=== PATIENT | female | born 1930 | race Caucasian/White ===

== ENCOUNTER 2016-07-22 10:46 | Inpatient (IN) | payer MEDICARE, OTHER ==
[2016-07-22] MEDS ORDERED: FEVERALL 650 MG PR STA (10:54)
[2016-07-22] MEDS ORDERED: FEVERALL 650 MG ONE ×2 (10:58→11:22)
[2016-07-22] MEDS ORDERED: Sodium Chloride 0.9% 1000 ML 1,000 ML IV SCH (11:00)
[2016-07-22 11:30] LABS: COMPLETE URINE MICROSCOPIC? YES; Collection Type CLEAN CATCH; Ph 5.5 (5-6)
[2016-07-22 11:31] LABS: Mean Cell Volume 89.9 fl (78-100); Mean Platelet Volume 12.7 fl (6-9.5); Platelet Count 77 K/mm3 (150-450); Red Blood Count 5.47 M/mm3 (4.1-5.4); Red Cell Distribution Width 20.1 % (11.5-14.0); White Blood Count 8.2 K/mm3 (4.0-10.5)
[2016-07-22 11:31] LABS: Lactic Acid 4.6 (0.4-2.0)
[2016-07-22] MEDS ORDERED: Sodium Chloride 0.9% 1000 ML 1,000 ML IV STA ×2 (11:33→11:34)
[2016-07-22] MEDS ORDERED: Sodium Chloride 0.9% 500 ML 500 ML IV ONE ×2 (11:34→11:58)
[2016-07-22] MEDS ORDERED: Zosyn 3.375GM/100 Ml D5W 3.375 GM/100 ML IVPB IV STA (11:35)
[2016-07-22 11:42] LABS: Bacteria MODERATE /HPF (NEGATIVE); Epithelial Cells MODERATE /HPF (FEW); Mucus MANY /HPF (NEGATIVE)
[2016-07-22 11:47] LABS: Mean Corpuscular Hemoglobin 30.1 pg (26-32)
[2016-07-22] MEDS ORDERED: Zosyn 3.375GM/100 Ml D5W 3.375 GM/100 ML IVPB IV ONE (11:57)
[2016-07-22 12:01] LABS: ALBUMIN 2.1 g/dL (3.4-5.0); ANION GAP 16.6 MEQ/L (5-15); BILIRUBIN,TOTAL 1.9 mg/dL (0.2-1.0); Carbon Dioxide 19.6 mEq/L (21-32); Potassium 4.4 mEq/L (3.5-5.1); Total Protein 6.1 gm/dL (6.4-8.2)
--- NOTE | 2016-07-22 12:06 | XRAY ---
Indication: Abdominal pain, diarrhea, and fever. Comparison: None 2 views of the abdomen demonstrates nonspecific nonobstructed bowel gas pattern with cholecystectomy clips, left lower quadrant suture material, and IVC filter. No focal bowel dilatation or free air. Mild scattered vascular calcifications. Solid organs unremarkable. Osseous structures intact with mild osteopenia. Single portable chest demonstrates prominent interstitial lung markings and left base infiltrate/atelectasis. Heart is not enlarged for AP portable technique. Bony thorax intact with osteopenia and degenerative changes. Impression: 1. Nonacute nonobstructed abdomen. 2. Left base infiltrate/atelectasis. Correlate clinically.
--- NOTE | 2016-07-22 12:22 | ERPHSYRPT ---
- History of Present Illness Time Seen by Provider: 07/22/16 10:55 Source: patient, family (granddaughter), fpc records Patient Subjective Stated Complaint: PT BROUGHT IN FROM [place] VIA AMBULANCE FOR ALTERED MENTAL STATUS THIS MORNING, AND LOW B/P, B/P PER EMS WAS 124/74 AND BS WAS 109. PT CO NAUSEA Triage Nursing Assessment: PT IS ALERT, RESP LABORED AT TIMES, SKIN HOT TO TOUCH AND PINK, HAS BRUISING TO RIGHT LEG, PT INCONT OF SOFT STOOL . PT CLEANED AND NEW LINENS APPLIED, NO EDEMA NOTED Physician History: CC: fever Hx: 85 y/o patient sent from [facility]. She apparently was living at home recently , had some falls, was admitted to [facility]. Subsequently found to have strokes. Stopped warfarin. Now placed on eliquis per cardiology. She is in rehab at [facility]. Today the [place] nurse called EMS for low BP. The BP was okay upon EMS arrival. The fpc called with a report of flaccid left side of unknown duration. Upon EMS arrival she had negative Cinncinatti stroke score and moved all extremities. EMS however noted her to have some foul smelling diarrhea, fever. Upon arrival in ER fever 103. Pt does not complain of pain. Recent loose rattling cough per granddaughter. She signed prior SCO/DNR paperwork and this was confirmed with grand-daughter. Allergies/Adverse Reactions: No Known Drug Allergies Allergy (Unverified 07/22/16 11:37) Home Medications: Apixaban [Eliquis] 5 mg BID 07/22/16 [History] Aspirin 81 gm Chew [Baby Aspirin 81 mg Chew] 81 mg DAILY 07/22/16 [History ] Atenolol 25 mg DAILY 07/22/16 [History] Esomeprazole Magnesium [Nexium] 20 mg DAILY 07/22/16 [History] Eszopiclone 1 mg DAILY 07/22/16 [History] Furosemide [Lasix] 40 mg DAILY 07/22/16 [History] Levothyroxine Sodium 75 Mcg [Synthroid 75 Mcg] 75 mcg DAILY 07/22/16 [ History] Nystatin/TCN/Hc/Diphenhydram [Xenia's Magic Mouthwash] 5 ml TID 07/22/16 [ History] Polyethylene Glycol 3350 [Miralax Powder] 17 gm DAILY 07/22/16 [History] Hx Influenza Vaccination/Date Given: Yes Hx Pneumococcal Vaccination/Date Given: Yes Immunizations Up to Date: Yes - Review of Systems Constitutional: Fever, Malaise Eyes: No Symptoms Respiratory: Cough, No Dyspnea Cardiac: No Chest Pain Abdominal/Gastrointestinal: Diarrhea, No Abdominal Pain Genitourinary Symptoms: No Dysuria Musculoskeletal: No Back Pain Skin: No Rash Neurological: No Headache All Other Systems: Reviewed and Negative - Past Medical History Pertinent Past Medical History: Yes Neurological History: Stroke Cardiac History: Hypertension Musculoskeletal History: Osteoarthritis GI Medical History: GERD - Past Surgical History Past Surgical History: Yes Gastrointestinal: Hernia Repair - Social History Smoking Status: Never smoker Exposure to second hand smoke: No Drug Use: none Patient Lives Alone: No - Female History Hx Last Menstrual Period: POST - Nursing Vital Signs Nursing Vital Signs: Initial Vital Signs Temperature 103.7 F Temperature Source Rectal Pulse Rate 96 Respiratory Rate 16 Blood Pressure [Left Arm] 90/49 Pain Intensity 0 - Physical Exam General Appearance: alert, other (frail appearing elderly lady) Eye Exam: PERRL/EOMI Ears, Nose, Throat Exam: dry mucous membranes Neck Exam: normal inspection, supple Respiratory Exam: diminished breath sounds Cardiovascular Exam: regular rate/rhythm Gastrointestinal/Abdomen Exam: soft, No tenderness, No distention Back Exam: normal inspection Extremity Exam: pedal edema (trace) Skin Exam: dry, other (hot skin) SpO2 Interpretation: normal SpO2: 94 Oxygen Delivery: Nasal Cannula - Course Nursing assessment & vital signs reviewed: Yes EKG Interpreted by Me: RATE (110 regular rhythm with IVCD) - Radiology Exams AAS X-ray Interpretation: Teleradiologist Report (right base infiltrate, neg abd) Ordered Tests: Active Orders 24 hr Category Date Time Status Actuary Clerk STAT Care 07/22/16 10:55 Active Cath for Specimen-Straight STAT Care 07/22/16 10:55 Active EKG-ER Only STAT Care 07/22/16 10:55 Active IV Insertion STAT Care 07/22/16 10:55 Active IV Insertion-2nd Peripheral STAT Care 07/22/16 11:37 Active Oxygen-ED Only NASAL CANNULA 1 lpm Care 07/22/16 11:40 Active Pulse Oximetry (ED) STAT Care 07/22/16 10:55 Active Rectal Temperature STAT Care 07/22/16 10:55 Active OBSTR/ACUTE ABDOMEN SERIES Stat Exams 07/22/16 10:56 Completed BLOOD CULTURE Stat Lab 07/22/16 11:15 Received CBC W DIFF Stat Lab 07/22/16 11:10 Results CMP Stat Lab 07/22/16 11:10 Completed CULTURE,URINE Stat Lab 07/22/16 11:05 Received Lactic Acid Urgent Lab 07/22/16 10:55 Results Manual Differential NC Stat Lab 07/22/16 11:10 Results TROPONIN Stat Lab 07/22/16 11:10 Completed UA W/ MICROSCOPIC Stat Lab 07/22/16 11:05 Completed Medication Summary Generic Name Dose Route Start Last Admin Trade Name Freq PRN Reason Stop Dose Admin Sodium Chloride 1,000 mls @ 100 mls/hr 07/22/16 11:00 07/22/16 11:24 Sodium Chloride 0.9% 1000 Ml IV 08/21/16 10:59 100 mls/hr .Q10H RAMONE Administration Discontinued Medications Generic Name Dose Route Start Last Admin Trade Name Freq PRN Reason Stop Dose Admin Acetaminophen 975 mg 07/22/16 10:54 07/22/16 11:24 Feverall 650 Mg AZ 07/22/16 10:55 975 mg STAT STA Administration Acetaminophen Confirm 07/22/16 10:58 Feverall 650 Mg Administered 07/22/16 10:59 Dose 1,300 mg .ROUTE .STK-MED ONE Acetaminophen Confirm 07/22/16 11:22 Feverall 650 Mg Administered 07/22/16 11:23 Dose 1,300 mg .ROUTE .STK-MED ONE Sodium Chloride 1,000 mls @ 999 mls/hr 07/22/16 11:33 07/22/16 11:30 Sodium Chloride 0.9% 1000 Ml IV 07/22/16 12:33 999 mls/hr .Q1H1M STA Administration Sodium Chloride 1,000 mls @ 999 mls/hr 07/22/16 11:34 Sodium Chloride 0.9% 1000 Ml IV 07/22/16 12:34 .Q1H1M STA Sodium Chloride 500 mls @ 500 mls/hr 07/22/16 11:34 Sodium Chloride 0.9% 500 Ml IV 07/22/16 12:33 .Q1H ONE Piperacillin Sod/Tazobactam Sod 3.375 gm in 100 mls @ 200 mls/hr 07/22/16 11: 35 07/22/16 12:03 Zosyn 3.375gm/100 Ml D5w IV 07/22/16 12:04 200 mls/hr STAT STA Administration Piperacillin Sod/Tazobactam Sod Confirm 07/22/16 11:57 Zosyn 3.375gm/100 Ml D5w Administered 07/22/16 11:58 Dose 3.375 gm in 100 mls @ ud IV .STK-MED ONE Sodium Chloride Confirm 07/22/16 11:58 Sodium Chloride 0.9% 500 Ml Administered 07/22/16 11:59 Dose 500 mls @ ud IV .STK-MED ONE Non-Formulary Medication 1 each 07/22/16 13:02 Pharmacy Dosing Request IJ 07/22/16 13:03 STAT ONE Lab/Rad Data: Laboratory Result Diagrams 07/22/16 11:10 07/22/16 11:10 Laboratory Results 07/22/16 07/22/16 07/22/16 Range/Units 11:30 11:15 11:10 WBC (4.0-10.5) K/mm3 RBC (4.1-5.4) M/mm3 Hgb (12.0-16.0) gm/dl Hct (35-47) % MCV (78-100) fl MCH (26-32) pg MCHC (32-36) g/dl RDW (11.5-14.0) % Plt Count (150-450) K/mm3 MPV (6-9.5) fl Segmented Neutrophils Lymphocytes (Manual) Monocytes (Manual) Differential Comment Platelet Estimate Polychromasia Poikilocytosis Anisocytosis Sodium (136-145) mEq/L Potassium (3.5-5.1) mEq/L Chloride (98-107) mEq/L Carbon Dioxide (21-32) mEq/L Anion Gap (5-15) MEQ/L BUN (9-20) mg/dL Creatinine (0.55-1.30) mg/dl Estimated GFR ML/MIN Glucose (70-110) MG/DL Lactic Acid (0.4-2.0) Calcium (8.5-10.1) mg/dL Total Bilirubin (0.2-1.0) mg/dL AST (15-37) U/L ALT (12-78) U/L Alkaline Phosphatase (46-116) U/L Troponin I 0.124 H* (0.000-0.056) ng/ml Serum Total Protein (6.4-8.2) gm/dL Albumin (3.4-5.0) g/dL Ur Collection Type Urine Color (YELLOW) Urine Appearance (CLEAR) Urine pH (5-6) Ur Specific Finley (1.005-1.025) Urine Protein (Negative) Urine Glucose (UA) (NEGATIVE) mg/dL Urine Ketones (NEGATIVE) Urine Nitrite (NEGATIVE) Urine Bilirubin (NEGATIVE) Urine Urobilinogen (0-1) mg/dL Urine WBC (Auto) (NEGATIVE) Urine RBC (Auto) (0-5) Bert/ul Urine Microscopic RBC (0-2) /HPF Urine Microscopic WBC (0-5) /HPF Ur Epithelial Cells (FEW) /HPF Urine Bacteria (NEGATIVE) /HPF Hyaline Casts (0-2) /LPF Urine Mucus (NEGATIVE) /HPF Stl C. diff Tox B Gene NEGATIVE (NEGATIVE) C.difficile 027-NAP1-B1 PRESUMPTIVE NEGATIVE (NEGATIVE) Influenza Type A Ag NEGATIVE (NEGATIVE) Influenza Type B Ag NEGATIVE (NEGATIVE) RSV (PCR) NEGATIVE (Negative) Specimen Received 07/22/16 07/22/16 07/22/16 Range/Units 11:10 11:10 11:05 WBC 8.2 (4.0-10.5) K/mm3 RBC 5.47 H (4.1-5.4) M/mm3 Hgb 16.5 H (12.0-16.0) gm/dl Hct 49.2 H (35-47) % MCV 89.9 (78-100) fl MCH 30.1 (26-32) pg MCHC 33.5 (32-36) g/dl RDW 20.1 H (11.5-14.0) % Plt Count 77 L (150-450) K/mm3 MPV 12.7 H (6-9.5) fl Segmented Neutrophils Pending Lymphocytes (Manual) Pending Monocytes (Manual) Pending Differential Comment Pending Platelet Estimate Pending Polychromasia Pending Poikilocytosis Pending Anisocytosis Pending Sodium 133 L (136-145) mEq/L Potassium 4.4 (3.5-5.1) mEq/L Chloride 101 (98-107) mEq/L Carbon Dioxide 19.6 L (21-32) mEq/L Anion Gap 16.6 H (5-15) MEQ/L BUN 23 H (9-20) mg/dL Creatinine 1.67 H (0.55-1.30) mg/dl Estimated GFR 31 ML/MIN Glucose 125 H (70-110) MG/DL Lactic Acid (0.4-2.0) Calcium 7.8 L (8.5-10.1) mg/dL Total Bilirubin 1.9 H (0.2-1.0) mg/dL AST 135 H (15-37) U/L ALT 33 (12-78) U/L Alkaline Phosphatase 162 H (46-116) U/L Troponin I (0.000-0.056) ng/ml Serum Total Protein 6.1 L (6.4-8.2) gm/dL Albumin 2.1 L (3.4-5.0) g/dL Ur Collection Type CLEAN CATCH Urine Color YELLOW (YELLOW) Urine Appearance CLEAR (CLEAR) Urine pH 5.5 (5-6) Ur Specific Finley >=1.030 (1.005-1.025) Urine Protein 30 (Negative) Urine Glucose (UA) NEGATIVE (NEGATIVE) mg/dL Urine Ketones NEGATIVE (NEGATIVE) Urine Nitrite NEGATIVE (NEGATIVE) Urine Bilirubin SMALL (NEGATIVE) Urine Urobilinogen 1 (0-1) mg/dL Urine WBC (Auto) NEGATIVE (NEGATIVE) Urine RBC (Auto) TRACE-INTACT (0-5) Bert/ul Urine Microscopic RBC 2-5 (0-2) /HPF Urine Microscopic WBC 2-5 (0-5) /HPF Ur Epithelial Cells MODERATE (FEW) /HPF Urine Bacteria MODERATE (NEGATIVE) /HPF Hyaline Casts 2-5 (0-2) /LPF Urine Mucus MANY (NEGATIVE) /HPF Stl C. diff Tox B Gene (NEGATIVE) C.difficile 027-NAP1-B1 (NEGATIVE) Influenza Type A Ag (NEGATIVE) Influenza Type B Ag (NEGATIVE) RSV (PCR) (Negative) Specimen Received [id number] 07/22/16 Range/Units 10:55 WBC (4.0-10.5) K/mm3 RBC (4.1-5.4) M/mm3 Hgb (12.0-16.0) gm/dl Hct (35-47) % MCV (78-100) fl MCH (26-32) pg MCHC (32-36) g/dl RDW (11.5-14.0) % Plt Count (150-450) K/mm3 MPV (6-9.5) fl Segmented Neutrophils Lymphocytes (Manual) Monocytes (Manual) Differential Comment Platelet Estimate Polychromasia Poikilocytosis Anisocytosis Sodium (136-145) mEq/L Potassium (3.5-5.1) mEq/L Chloride (98-107) mEq/L Carbon Dioxide (21-32) mEq/L Anion Gap (5-15) MEQ/L BUN (9-20) mg/dL Creatinine (0.55-1.30) mg/dl Estimated GFR ML/MIN Glucose (70-110) MG/DL Lactic Acid 4.6 H (0.4-2.0) Calcium (8.5-10.1) mg/dL Total Bilirubin (0.2-1.0) mg/dL AST (15-37) U/L ALT (12-78) U/L Alkaline Phosphatase (46-116) U/L Troponin I (0.000-0.056) ng/ml Serum Total Protein (6.4-8.2) gm/dL Albumin (3.4-5.0) g/dL Ur Collection Type Urine Color (YELLOW) Urine Appearance (CLEAR) Urine pH (5-6) Ur Specific Finley (1.005-1.025) Urine Protein (Negative) Urine Glucose (UA) (NEGATIVE) mg/dL Urine Ketones (NEGATIVE) Urine Nitrite (NEGATIVE) Urine Bilirubin (NEGATIVE) Urine Urobilinogen (0-1) mg/dL Urine WBC (Auto) (NEGATIVE) Urine RBC (Auto) (0-5) Bert/ul Urine Microscopic RBC (0-2) /HPF Urine Microscopic WBC (0-5) /HPF Ur Epithelial Cells (FEW) /HPF Urine Bacteria (NEGATIVE) /HPF Hyaline Casts (0-2) /LPF Urine Mucus (NEGATIVE) /HPF Stl C. diff Tox B Gene (NEGATIVE) C.difficile 027-NAP1-B1 (NEGATIVE) Influenza Type A Ag (NEGATIVE) Influenza Type B Ag (NEGATIVE) RSV (PCR) (Negative) Specimen Received - Progress Progress Note: 07/22/16 12:22 She has fever and lactic acid elevation. Cultures sent. Zosyn given. She is receiving NS bolus 30ml/kg over 2 hours. 07/22/16 13:05 Abd soft and NT. She has elevated lactic acid so IVF bolus given. Consulted Dr Johnson regarding EKG and troponin- she has old LBBB and he advised no further heart treatment at present and to support care for sepsis. Called Dr Walter Levi and will admit to [facility]/S with IVF, vanco, zosyn to cover health care acquired pneumonia/sepsis. SEPSIS REASSMENT NOTE: T 99.1 HR 96 RR 16 BP 104/42 Alert, sleepy. Skin warm and dry and pink. Radial pulses 3+. DP pulses 2+ bilateral. Chest diminished without resp distress. Cor reg, tachy. Abd soft and NT. Will see patient in: hospital (full admit) Counseled pt/family regarding: lab results, diagnosis, need for follow-up, rad results - Departure Time of Disposition: 13:10 Departure Disposition: In-patient Admission Clinical Impression: Sepsis, healthcare acquired pneumonia, Elevated troponin Condition: Serious Critical Care Time: Yes Critical Care Time(excluding separately billable procedures): 30-74 minutes Referrals: JACKSON LEVI [Primary Care Provider] -
[2016-07-22 12:37] LABS: Total Cells Counted 100
[2016-07-22 12:38] LABS: ANISOCYTOSIS 2+; Platelet Estimate DECREASED (NORMAL); Poikilocytosis 2+; Polychromasia 1+
[2016-07-22] MEDS ORDERED: PHARMACY DOSING REQUEST IJ ONE (13:02)
[2016-07-22] MEDS ORDERED: ASPIRIN 600 MG PR ONE (13:04)
[2016-07-22] MEDS ORDERED: ASPIRIN 600 MG ONE (13:14)
[2016-07-22] MEDS ORDERED: VANCOCIN 500 MG VIAL*** 500 MG in Sodium Chloride 100ML MINI-BAG PLUS 100 ML IV SCH (14:00)
[2016-07-22] MEDS ORDERED: PHARMACY DOSING REQUIRED: VANCOMYCIN IV ONE (14:32)
[2016-07-22] MEDS: Sodium Chloride 0.9% 1000 ML 1,000 ML IV SCH (15:17)
[2016-07-22] MEDS ORDERED: Zosyn 3.375GM/100 Ml D5W 3.375 GM/100 ML IVPB IV SCH (18:00)
--- NOTE | 2016-07-22 18:01 | PCM.HP ---
History of Present Illness - Chief Complaint Chief Complaint: SEPSIS, HEALTHCARE ACQUIRED PNEUMONIA Date: 07/22/16 History of Present Illness: is a 85 year old female. from the retirement with cough yesterday and sudden deterioratoin this am with low bp and fever EMS found she had normal neuro exam in [facility]CF by EMS and in ED by Dr. Marshall. Nursing notes she has been moving all extremities and very tired. She currently only briefly shakes her head to questions and withdraws from stimuli. - Review of Systems Constitutional: Other (unable to obtain due to current mental status) Medications & Allergies Home Medications: Home Medication List Acetaminophen 325 mg [Tylenol 325 mg] 650 mg PO Q4HPRN PRN 07/22/16 [ History Confirmed 07/22/16] Apixaban [Eliquis] 5 mg PO BID 07/22/16 [History Confirmed 07/22/16] Aspirin 81 gm Chew [Baby Aspirin 81 mg Chew] 81 mg PO UD 07/22/16 [ History Confirmed 07/22/16] Atenolol 25 mg DAILY 07/22/16 [History Confirmed 07/22/16] Bisacodyl 10 mg [Dulcolax 10 MG SUPP] 10 mg RC DAILY PRN PRN 07/22/16 [ History Confirmed 07/22/16] Esomeprazole Magnesium [Nexium] 20 mg PO DAILY 07/22/16 [History Confirmed 07/22] Eszopiclone 1 mg PO HS 07/22/16 [History Confirmed 07/22/16] Furosemide [Lasix] 40 mg DAILY 07/22/16 [History Confirmed 07/22/16] Hydrocodone/Acetaminophen [[place] 5-325 Tablet] 1 each PO Q4HPRN PRN 07/22/16 [ History Confirmed 07/22/16] Levothyroxine Sodium 75 Mcg [Synthroid 75 Mcg] 75 mcg PO DAILY 07/22/16 [ History Confirmed 07/22/16] Nystatin/TCN/Hc/Diphenhydram [Xenia's Magic Mouthwash] 5 ml PO QID 07/22/16 [History Confirmed 07/22/16] Polyethylene Glycol 3350 [Miralax Powder] 17 gm DAILY 07/22/16 [History Confirmed 07/22/16] Allergies/Adverse Reactions: Allergies Allergy/AdvReac Type Severity Reaction Status Date / Time No Known Drug Allergies Allergy Unverified 07/22/16 11:37 - Past Medical History Past Medical History: Yes Neurological History: Stroke ENT History: No Pertinent History Cardiac History: Hypertension Respiratory History: No Pertinent History Endocrine Medical History: Hypothyroidism Musculoskelatal History: Osteoarthritis GI Medical History: GERD History: No Pertinent History Pyscho-Social History: No Pertinent History Reproductive Disorders: No Pertinent History - Female History Hx Last Menstrual Period: POST Are you now?: No - Past Surgical History Past Surgical History: Yes Neuro Surgical History: No Pertinent History Cardiac History: No Pertinent History Respiratory Surgery: No Pertinent History GI Surgical History: Hernia Repair Genitourinary Surgical Hx: No Pertinent History Musculskeletal Surgical Hx: No Pertinent History Female Surgical History: No Pertinent History - Social History Smoking Status: Never smoker Exposure to second hand smoke: No Alcohol: None Drug Use: none - Physical Exam Vital Signs: Vital Signs - 24 hr Temp Pulse Resp BP Pulse Ox 07/22/16 16:16 84 18 96 07/22/16 15:31 98.1 F 89 18 97/54 93 L 07/22/16 14:33 98.1 F 89 18 97/54 93 L 07/22/16 14:32 98.1 F 89 20 97/54 96 07/22/16 14:20 90 20 90/51 07/22/16 13:54 99.1 F 89 20 93/42 96 07/22/16 13:20 93 H 16 84/47 96 07/22/16 13:10 94 L 07/22/16 12:54 96 H 16 90/49 95 07/22/16 11:59 106 H 24 98/48 94 L 07/22/16 11:30 103.7 F 96 07/22/16 10:50 103.7 F 07/22/16 10:46 103.7 F 116 H 30 H 121/67 98 Oxygen-Last 24 hours O2 Percentage 2 Liters = 28% O2 Percentage 2 Liters = 28% O2 Percentage 2 Liters = 28% O2 Percentage 2 Liters = 28% O2 Percentage 2 Liters = 28% O2 Percentage 2 Liters = 28% O2 Percentage 2 Liters = 28% General Appearance: no apparent distress, lethargy Neurologic Exam: other (withdraws from painful stimuli moves head from exam and closes eyes to light shakes head and mumbled response) Eye Exam: pale conjunctivae Ears, Nose, Throat Exam: dry mucous membranes Neck Exam: non-tender, supple Respiratory Exam: crackles/rales, rhonchi Cardiovascular Exam: regular rate/rhythm, murmur, edema Gastrointestinal/Abdomen Exam: soft, normal bowel sounds, No tenderness, No distention Extremity Exam: pedal edema, No calf tenderness Skin Exam: warm, dry, other (flushed appearence) Results - Other Procedures and Tests Respiratory Therapy 07/22/16 16:20 Oxygen NASAL CANNULA 2 lpm Assessment/Plan (1) Severe sepsis Current Visit: Yes Status: Acute Assessment & Plan: Her fluid resuscitation has seemed to show good improvement in BP, heart rate, oxygenation is doing well on 2L nc O2 currently. With her current drowsy mental status, hx of stroke, eliquis and thrombocytopenia will get CT noncontrast head rule out hemorrhage if negative continue the eliquis. Also check vbg repeat lytes and check ammonia level Sepsis due to health care associated pneumonia with associated renal failure and toxic encephalopathy with lactic acidosis improving with fluid resuscitation that appears adequately resuscitated currently and history of her cardiac deficits continue at 100 mL/h and monitor fluid status closely continue vanc + zosyn cultures pending. her plate printer recommended medical mgmt only for her elevated troponin and will continue with asa/atenolol if bp allows / will add statin no nicholas inhibitor with acute renal failure and sepsis Code(s): A41.9 - SEPSIS, UNSPECIFIED ORGANISM; R65.20 - SEVERE SEPSIS WITHOUT SEPTIC SHOCK (2) Pneumonia Current Visit: Yes Status: Acute Code(s): J18.9 - PNEUMONIA, UNSPECIFIED ORGANISM (3) Toxic metabolic encephalopathy Current Visit: Yes Status: Acute Code(s): G92 - TOXIC ENCEPHALOPATHY (4) Thrombocytopenia Current Visit: Yes Status: Acute (5) Acute renal failure Current Visit: Yes Status: Acute (6) Dehydration Current Visit: Yes Status: Acute Code(s): E86.0 - DEHYDRATION (7) Diarrhea Current Visit: Yes Status: Acute Code(s): R19.7 - DIARRHEA, UNSPECIFIED (8) Elevated troponin Current Visit: Yes Status: Acute Code(s): R74.8 - ABNORMAL LEVELS OF OTHER SERUM ENZYMES (9) Personal history of transient ischemic attack (TIA), and cerebral infarction without residual deficits Current Visit: Yes Status: Chronic Code(s): Z86.73 - PRSNL HX OF TIA (TIA), AND CEREB INFRC W/O RESID DEFICITS
[2016-07-22 18:21] LABS: A-aADO2 47; ARTERIAL BLD GAS O2 SATURATION 99.6 % (95-100); ARTERIAL BLOOD GAS BASE EXCESS -2.6 (-2.0-2.0); ARTERIAL BLOOD GAS FIO2 28 %; ARTERIAL BLOOD GAS PO2 116 mmHg (75-100); ARTERIAL BLOOD GAS pH 7.45 (7.35-7.45)
[2016-07-22] MEDS ORDERED: TYLENOL 325 MG PO PRN (18:27)
[2016-07-22] MEDS: Zosyn 2.25 GM 2.25 GM in Dextrose 5%/Water IV Soln. 100ML PLUS BAG 100 ML IV SCH (18:39)
[2016-07-22 19:15] LABS: ANION GAP 15.2 MEQ/L (5-15); Carbon Dioxide 18.9 mEq/L (21-32); Potassium 3.8 mEq/L (3.5-5.1)
[2016-07-22] MEDS: ELIQUIS PO SCH (22:37)
[2016-07-22] MEDS: ZOCOR 20MG PO SCH (22:37)
[2016-07-23] MEDS: Zosyn 2.25 GM 2.25 GM in Dextrose 5%/Water IV Soln. 100ML PLUS BAG 100 ML IV SCH ×4 (00:19→17:33)
[2016-07-23] MEDS: Sodium Chloride 0.9% 1000 ML 1,000 ML IV SCH (00:23)
[2016-07-23] MEDS ORDERED: solu-CORTEF 100MG IV ONE (01:57)
[2016-07-23] MEDS ORDERED: solu-CORTEF 250MG IV ONE (02:02)
[2016-07-23 05:46] LABS: Mean Cell Volume 91.7 fl (78-100); Mean Corpuscular Hemoglobin 30.8 pg (26-32); Mean Platelet Volume 11.5 fl (6-9.5); Platelet Count 62 K/mm3 (150-450); Red Blood Count 4.32 M/mm3 (4.1-5.4); Red Cell Distribution Width 19.2 % (11.5-14.0); White Blood Count 3.3 K/mm3 (4.0-10.5)
[2016-07-23 06:14] LABS: ANION GAP 12.2 MEQ/L (5-15); Carbon Dioxide 21.6 mEq/L (21-32); Potassium 3.6 mEq/L (3.5-5.1)
[2016-07-23] MEDS ORDERED: Dulcolax 10 MG SUPP RC PRN (06:57)
[2016-07-23] MEDS ORDERED: BABY ASPIRIN 81 MG CHEW PO SCH (07:00)
--- NOTE | 2016-07-23 08:31 | XRAY ---
Indication: Altered mental status. Multiple contiguous axial images obtained through the head without contrast. Comparison: None Age-appropriate global atrophy and minimal periventricular degenerative micro-ischemia. No acute intracranial hemorrhage, abnormal extra-axial fluid collection, or mass effect. Fourth ventricle is midline without hydrocephalus. Bony calvarium intact with mild hyperostosis frontalis interna. Visualized paranasal sinuses and mastoid air cells are pneumatized and clear. Impression: Normal aging brain. No acute intracranial abnormalities. CT DI 3.66
[2016-07-23 09:14] LABS: ANISOCYTOSIS 1+; Basophilic Stippling 1+; Poikilocytosis 1+; Polychromasia 1+; Total Cells Counted 100
[2016-07-23 09:15] LABS: Platelet Estimate DECREASED (NORMAL)
[2016-07-23] MEDS: Protonix 40MG Tablet PO SCH (10:00)
[2016-07-23] MEDS ORDERED: TENORMIN 50 MG PO SCH (10:00)
[2016-07-23] MEDS: VANCOCIN 1 GM VIAL*** 0.75 GM in Sodium Chloride 0.9% 250 ML 250 ML IV SCH (10:00)
[2016-07-23] MEDS: ELIQUIS PO SCH ×2 (10:00→23:15)
[2016-07-23] MEDS: SYNTHROID 75 MCG PO SCH (10:00)
[2016-07-23 10:07] LABS: Collection Type VOID
[2016-07-23] MEDS: solu-CORTEF 100MG IV SCH ×2 (11:48→17:34)
[2016-07-23 12:26] LABS: COMPLETE URINE MICROSCOPIC? YES
[2016-07-23] MEDS: Nystatin SUSPENSION 60 ML PO SCH ×3 (13:58→23:19)
--- NOTE | 2016-07-23 14:16 | PCM.NOTE ---
Date and Time: 07/23/16 1412 Subjective Assessment: She is more awake and alert today and wanting something to drink. She has no pain, nausea or vomiting. Her mouth still hurts as it has for several days it appears with sores in her mouth. Objective Exam General Appearance: obese Neurologic Exam: alert, oriented x 3, cooperative Skin Exam: warm, dry, pale Eye Exam: pale conjunctivae, No scleral icterus Ears, Nose, Throat Exam: moist mucous membranes, other (oral care better today still some healing scabs on the roof of the soft palate) Neck Exam: non-tender, supple Respiratory Exam: crackles/rales (left base) Cardiovascular Exam: regular rate/rhythm, murmur, edema (1+ suma LE) Gastrointestinal/Abdomen Exam: soft, normal bowel sounds, No tenderness, No distention Extremity Exam: pedal edema, No calf tenderness OBJECTIVE DATA Vital Signs: Vital Signs - 24 hr Temp Pulse Resp BP Pulse Ox 07/23/16 14:07 97.8 F 07/23/16 13:06 96.8 F 70 18 108/57 96 07/23/16 09:38 96.9 F 07/23/16 07:19 96 F 68 18 106/60 95 07/23/16 05:46 96.4 F 66 16 104/58 95 07/23/16 03:51 22 07/23/16 02:48 94.7 F 71 22 107/56 92 L 07/23/16 00:40 95.6 F 71 20 106/56 94 L 07/22/16 20:12 93 L 07/22/16 20:00 96.0 F 71 20 98/57 95 07/22/16 18:24 75 102/54 95 07/22/16 16:16 84 18 96 07/22/16 15:31 98.1 F 89 18 97/54 93 L 07/22/16 14:33 98.1 F 89 18 97/54 93 L 07/22/16 14:32 98.1 F 89 20 97/54 96 07/22/16 14:20 90 20 90/51 Oxygen-Last 24 hours O2 Percentage 2 Liters = 28% O2 Percentage 2 Liters = 28% O2 Percentage 2 Liters = 28% O2 Percentage 2 Liters = 28% O2 Percentage 2 Liters = 28% O2 Percentage 2 Liters = 28% O2 Percentage 2 Liters = 28% O2 Percentage 2 Liters = 28% Pain Assessment - Last Documented Pain Intensity 0 Pain Scale Used 0-10 Pain Scale Intake and Output: Intake & Output 07/21/16 07/22/16 07/23/16 07/24/16 11:59 11:59 11:59 11:59 Intake Total 1391 Output Total 600 Balance 791 Weight 82.645 kg Lab Results: Lab Results-Last 24 Hours 07/22/16 07/22/16 07/22/16 Range/Units 18:12 18:57 18:57 WBC (4.0-10.5) K/mm3 RBC (4.1-5.4) M/mm3 Hgb (12.0-16.0) gm/dl Hct (35-47) % MCV (78-100) fl MCH (26-32) pg MCHC (32-36) g/dl RDW (11.5-14.0) % Plt Count (150-450) K/mm3 MPV (6-9.5) fl Segmented Neutrophils (36.0-66.0) % Lymphocytes (Manual) (24-44) % Monocytes (Manual) (0.0-12.0) % Differential Comment Platelet Estimate (NORMAL) Polychromasia Poikilocytosis Basophilic Stippling Anisocytosis Puncture Site LEFT BRACHIAL pCO2 29 L (35-45) mmHg pO2 116 H (75-100) mmHg Base Excess -2.6 L (-2.0-2.0) O2 Saturation 97.0 (94-100) g/dF ABG pH 7.45 (7.35-7.45) ABG HCO3 20.2 L (22-28) ABG O2 Sat (Measured) 99.6 (95-100) % Jake Test NOT APPLICABLE A-a Gradient 47 a/A Ratio 0.71 Hemoglobin 13.5 Carboxyhemoglobin 1.6 (0.0-6.9) % THgb Methemoglobin 1.0 L (1.4-1.5) % Potassium 3.6 3.8 (3.5-5.1) Temperature 37.0 C POC O2 Flow Rate 28 % Sodium 138 (136-145) mEq/L Chloride 108 H (98-107) mEq/L Carbon Dioxide 18.9 L (21-32) mEq/L Anion Gap 15.2 H (5-15) MEQ/L BUN 24 H (9-20) mg/dL Creatinine 1.34 H (0.55-1.30) mg/dl Estimated GFR 40 ML/MIN Glucose 131 H (70-110) MG/DL Calcium 7.1 L (8.5-10.1) mg/dL Ammonia 54 H (11-32) MMOL/l Ur Collection Type Urine Color (YELLOW) Urine Appearance (CLEAR) Urine pH (5-6) Ur Specific [place] (1.005-1.025) Urine Protein (Negative) Urine Glucose (UA) (NEGATIVE) mg/dL Urine Ketones (NEGATIVE) Urine Nitrite (NEGATIVE) Urine Bilirubin (NEGATIVE) Urine Urobilinogen (0-1) mg/dL Urine WBC (Auto) (NEGATIVE) Urine RBC (Auto) (0-5) Bert/ul Specimen Received 07/23/16 07/23/16 07/23/16 Range/Units 05:10 05:10 09:40 WBC 3.3 L (4.0-10.5) K/mm3 RBC 4.32 (4.1-5.4) M/mm3 Hgb 13.3 (12.0-16.0) gm/dl Hct 39.6 (35-47) % MCV 91.7 (78-100) fl MCH 30.8 (26-32) pg MCHC 33.6 (32-36) g/dl RDW 19.2 H (11.5-14.0) % Plt Count 62 L (150-450) K/mm3 MPV 11.5 H (6-9.5) fl Segmented Neutrophils 77 H (36.0-66.0) % Lymphocytes (Manual) 18 L (24-44) % Monocytes (Manual) 5 (0.0-12.0) % Differential Comment ABNORMAL Platelet Estimate DECREASED (NORMAL) Polychromasia 1+ Poikilocytosis 1+ Basophilic Stippling 1+ Anisocytosis 1+ Puncture Site pCO2 (35-45) mmHg pO2 (75-100) mmHg Base Excess (-2.0-2.0) O2 Saturation (94-100) g/dF ABG pH (7.35-7.45) ABG HCO3 (22-28) ABG O2 Sat (Measured) (95-100) % Jake Test A-a Gradient a/A Ratio Hemoglobin Carboxyhemoglobin (0.0-6.9) % THgb Methemoglobin (1.4-1.5) % Potassium 3.6 (3.5-5.1) Temperature C POC O2 Flow Rate % Sodium 139 (136-145) mEq/L Chloride 109 H (98-107) mEq/L Carbon Dioxide 21.6 (21-32) mEq/L Anion Gap 12.2 (5-15) MEQ/L BUN 26 H (9-20) mg/dL Creatinine 1.25 (0.55-1.30) mg/dl Estimated GFR 43 ML/MIN Glucose 110 (70-110) MG/DL Calcium 6.9 L (8.5-10.1) mg/dL Ammonia (11-32) MMOL/l Ur Collection Type VOID Urine Color DARK YELLOW (YELLOW) Urine Appearance CLEAR (CLEAR) Urine pH 5.0 (5-6) Ur Specific [place] 1.025 (1.005-1.025) Urine Protein TRACE (Negative) Urine Glucose (UA) NEGATIVE (NEGATIVE) mg/dL Urine Ketones NEGATIVE (NEGATIVE) Urine Nitrite NEGATIVE (NEGATIVE) Urine Bilirubin NEGATIVE (NEGATIVE) Urine Urobilinogen 0.2 (0-1) mg/dL Urine WBC (Auto) NEGATIVE (NEGATIVE) Urine RBC (Auto) NEGATIVE (0-5) Bert/ul Specimen Received 07/23/2016 10:06 Radiology Exams: Radiology Procedures Category Date Time Status HEAD WITHOUT CONTRAST [CT] Stat Exams 07/22/16 18:00 Completed Multi-Disciplinary Progress Notes: Multi-Disciplinary Progress Notes 07/22/16 15:02 Pharmacy Note by MICROCOMPUTER SUPPORT SPECIALIST,PHARM Estimated CrCl was 22ml/min. SCr is 1.67. Pharmacy to adjust Zosyn dose from 3.375g Q6H to 2.25g Q6H. Will monitor SCr and CrCl and adjust dose if needed. - Jeff aBrclay PharmD Candidate Initialized on 07/22/16 15:02 - END OF NOTE 07/22/16 14:28 Pharmacy Note by MICROCOMPUTER SUPPORT SPECIALIST,PHARM Pharmacy to dose Vancomycin. Pt's SCr was 1.67. Give Vancomycin 500mg Q24H. Get trough level on 07/24 at 0930. Continue to monitor and dose accordingly. - Jeff Barclay PharmD Candidate Initialized on 07/22/16 14:28 - END OF NOTE Assessment/Plan (1) Severe sepsis Current Visit: Yes Status: Acute Assessment & Plan: secondary to left lower lobe HCAP on vanc and zosyn was having low temp overnight and required warming blankent and hydrocortisone was added will continue at 50 mg q6h minimal urine output but improved renal function will anchor hollins for accurate I/O thrombocytopenia stable elevated ammonia level alert now will recheck after infection improving add lactulose if decreased mentation on Eliquis for ppx add soft diet now continue ivf at 100 mL/h Code(s): A41.9 - SEPSIS, UNSPECIFIED ORGANISM; R65.20 - SEVERE SEPSIS WITHOUT SEPTIC SHOCK (2) Pneumonia Current Visit: Yes Status: Acute Code(s): J18.9 - PNEUMONIA, UNSPECIFIED ORGANISM (3) Toxic metabolic encephalopathy Current Visit: Yes Status: Acute Code(s): G92 - TOXIC ENCEPHALOPATHY (4) Thrombocytopenia Current Visit: Yes Status: Acute (5) Acute renal failure Current Visit: Yes Status: Acute (6) Dehydration Current Visit: Yes Status: Acute Code(s): E86.0 - DEHYDRATION (7) Diarrhea Current Visit: Yes Status: Acute Code(s): R19.7 - DIARRHEA, UNSPECIFIED (8) Elevated troponin Current Visit: Yes Status: Acute Code(s): R74.8 - ABNORMAL LEVELS OF OTHER SERUM ENZYMES (9) Personal history of transient ischemic attack (TIA), and cerebral infarction without residual deficits Current Visit: Yes Status: Chronic Code(s): Z86.73 - PRSNL HX OF TIA (TIA), AND CEREB INFRC W/O RESID DEFICITS
[2016-07-23] MEDS: ZOCOR 20MG PO SCH (23:15)
[2016-07-24] MEDS: solu-CORTEF 100MG IV SCH ×2 (00:55→05:54)
[2016-07-24] MEDS: Zosyn 2.25 GM 2.25 GM in Dextrose 5%/Water IV Soln. 100ML PLUS BAG 100 ML IV SCH ×4 (00:56→17:19)
[2016-07-24 06:29] LABS: ANION GAP 11.1 MEQ/L (5-15); Potassium 3.7 mEq/L (3.5-5.1)
[2016-07-24] MEDS: Sodium Chloride 0.9% 1000 ML 1,000 ML IV SCH (06:39)
[2016-07-24 06:55] LABS: Mean Cell Volume 92.6 fl (78-100); Mean Corpuscular Hemoglobin 30.8 pg (26-32); Mean Platelet Volume 12.5 fl (6-9.5); Platelet Count 67 K/mm3 (150-450); Red Blood Count 4.32 M/mm3 (4.1-5.4); Red Cell Distribution Width 19.1 % (11.5-14.0); White Blood Count 3.1 K/mm3 (4.0-10.5)
[2016-07-24] MEDS: Protonix 40MG Tablet PO SCH (09:26)
[2016-07-24] MEDS: ELIQUIS PO SCH ×2 (09:26→21:44)
[2016-07-24] MEDS: SYNTHROID 75 MCG PO SCH (09:26)
[2016-07-24] MEDS: Nystatin SUSPENSION 60 ML PO SCH ×4 (09:27→21:44)
[2016-07-24] MEDS ORDERED: TROUGH DRUG LEVELS IJ ONE (09:30)
[2016-07-24] MEDS: VANCOCIN 1 GM VIAL*** 0.75 GM in Sodium Chloride 0.9% 250 ML 250 ML IV SCH (09:57)
[2016-07-24] MEDS ORDERED: ECOTRIN 81 MG PO SCH (10:00)
--- NOTE | 2016-07-24 10:21 | PCM.NOTE ---
Date and Time: 07/24/16 [facility] Subjective Assessment: doing much better tolerating drinking but still not able to swallow solids. States having difficulty sleeping also intermittently having some pain in the legs more on the left. she has developed a pressure ulcer on the right heal. She complains she is unable to sleep but nursing reports sleeping well. Objective Exam General Appearance: no apparent distress, alert Neurologic Exam: alert, oriented x 3, cooperative Skin Exam: normal color, warm, dry, other (right heal pressure ulcer) Eye Exam: PERRL, EOMI, eyes nml inspection Ears, Nose, Throat Exam: moist mucous membranes, other (redness in the soft palate is improving significantly.) Neck Exam: normal inspection, non-tender, supple, full range of motion Respiratory Exam: normal breath sounds, crackles/rales (bibasilar worse on left) , No respiratory distress Cardiovascular Exam: regular rate/rhythm, normal heart sounds, edema (2+ bilateral) Gastrointestinal/Abdomen Exam: soft, No tenderness, No mass Extremity Exam: normal inspection, normal range of motion, other (right heal blister) Back Exam: normal inspection, normal range of motion, No CVA tenderness, No vertebral tenderness Pelvic Exam: deferred Rectal Exam: deferred OBJECTIVE DATA Vital Signs: Vital Signs - 24 hr Temp Pulse Resp BP Pulse Ox 07/24/16 07:29 18 07/24/16 07:21 98.0 F 71 18 144/65 95 07/24/16 04:00 98.9 F 75 18 133/61 97 07/24/16 00:00 97.4 F 75 14 126/66 96 07/23/16 20:00 98.3 F 78 15 126/71 95 07/23/16 19:42 81 20 97 07/23/16 16:26 97.6 F 07/23/16 15:55 18 96 07/23/16 14:07 97.8 F 07/23/16 13:06 96.8 F 70 18 108/57 96 Oxygen-Last 24 hours O2 Percentage 2 Liters = 28% O2 Percentage 2 Liters = 28% O2 Percentage 2 Liters = 28% O2 Percentage 2 Liters = 28% Pain Assessment - Last Documented Pain Intensity 0 Pain Scale Used 0-10 Pain Scale Intake and Output: Intake & Output 07/21/16 07/22/16 07/23/16 07/24/16 11:59 11:59 11:59 11:59 Intake Total 1391 2890 Output Total 600 550 Balance 791 2340 Weight 82.645 kg Lab Results: Lab Results-Last 24 Hours 07/23/16 07/24/16 07/24/16 Range/Units 09:40 06:05 06:05 WBC 3.1 L (4.0-10.5) K/mm3 RBC 4.32 (4.1-5.4) M/mm3 Hgb 13.3 (12.0-16.0) gm/dl Hct 40.0 (35-47) % MCV 92.6 (78-100) fl MCH 30.8 (26-32) pg MCHC 33.3 (32-36) g/dl RDW 19.1 H (11.5-14.0) % Plt Count 67 L (150-450) K/mm3 MPV 12.5 H (6-9.5) fl Sodium (136-145) mEq/L Potassium (3.5-5.1) mEq/L Chloride (98-107) mEq/L Carbon Dioxide (21-32) mEq/L Anion Gap (5-15) MEQ/L BUN (9-20) mg/dL Creatinine (0.55-1.30) mg/dl Estimated GFR ML/MIN Glucose (70-110) MG/DL Calcium (8.5-10.1) mg/dL Ammonia 36 H (11-32) MMOL/l Ur Collection Type VOID Urine Color DARK YELLOW (YELLOW) Urine Appearance CLEAR (CLEAR) Urine pH 5.0 (5-6) Ur Specific [place] 1.025 (1.005-1.025) Urine Protein TRACE (Negative) Urine Glucose (UA) NEGATIVE (NEGATIVE) mg/dL Urine Ketones NEGATIVE (NEGATIVE) Urine Nitrite NEGATIVE (NEGATIVE) Urine Bilirubin NEGATIVE (NEGATIVE) Urine Urobilinogen 0.2 (0-1) mg/dL Urine WBC (Auto) NEGATIVE (NEGATIVE) Urine RBC (Auto) NEGATIVE (0-5) Bert/ul Specimen Received 07/23/2016 10:06 07/24/16 Range/Units 06:05 WBC (4.0-10.5) K/mm3 RBC (4.1-5.4) M/mm3 Hgb (12.0-16.0) gm/dl Hct (35-47) % MCV (78-100) fl MCH (26-32) pg MCHC (32-36) g/dl RDW (11.5-14.0) % Plt Count (150-450) K/mm3 MPV (6-9.5) fl Sodium 137 (136-145) mEq/L Potassium 3.7 (3.5-5.1) mEq/L Chloride 108 H (98-107) mEq/L Carbon Dioxide 22.0 (21-32) mEq/L Anion Gap 11.1 (5-15) MEQ/L BUN 28 H (9-20) mg/dL Creatinine 1.15 (0.55-1.30) mg/dl Estimated GFR 48 ML/MIN Glucose 134 H (70-110) MG/DL Calcium 7.4 L (8.5-10.1) mg/dL Ammonia (11-32) MMOL/l Ur Collection Type Urine Color (YELLOW) Urine Appearance (CLEAR) Urine pH (5-6) Ur Specific [place] (1.005-1.025) Urine Protein (Negative) Urine Glucose (UA) (NEGATIVE) mg/dL Urine Ketones (NEGATIVE) Urine Nitrite (NEGATIVE) Urine Bilirubin (NEGATIVE) Urine Urobilinogen (0-1) mg/dL Urine WBC (Auto) (NEGATIVE) Urine RBC (Auto) (0-5) Bert/ul Specimen Received Radiology Exams: Radiology Procedures Category Date Time Status HEAD WITHOUT CONTRAST [CT] Stat Exams 07/22/16 18:00 Completed Assessment/Plan (1) Severe sepsis Current Visit: Yes Status: Acute Assessment & Plan: continue vanc/zosyn for now improving well d/c iv fluids d/c hydrocortisone speech therapy eval and treat the swallowing dysfunction ppx is on eliquis therapeutic dose Code(s): A41.9 - SEPSIS, UNSPECIFIED ORGANISM; R65.20 - SEVERE SEPSIS WITHOUT SEPTIC SHOCK (2) Pneumonia Current Visit: Yes Status: Acute Code(s): J18.9 - PNEUMONIA, UNSPECIFIED ORGANISM (3) Toxic metabolic encephalopathy Current Visit: Yes Status: Resolved Code(s): G92 - TOXIC ENCEPHALOPATHY (4) Thrombocytopenia Current Visit: Yes Status: Acute (5) Acute renal failure Current Visit: Yes Status: Acute (6) Dehydration Current Visit: Yes Status: Resolved Code(s): E86.0 - DEHYDRATION (7) Diarrhea Current Visit: Yes Status: Resolved Code(s): R19.7 - DIARRHEA, UNSPECIFIED (8) Elevated troponin Current Visit: Yes Status: Acute Code(s): R74.8 - ABNORMAL LEVELS OF OTHER SERUM ENZYMES (9) Personal history of transient ischemic attack (TIA), and cerebral infarction without residual deficits Current Visit: Yes Status: Chronic Code(s): Z86.73 - PRSNL HX OF TIA (TIA), AND CEREB INFRC W/O RESID DEFICITS
[2016-07-24] MEDS: ZOCOR 20MG PO SCH (21:44)
[2016-07-25] MEDS: Zosyn 2.25 GM 2.25 GM in Dextrose 5%/Water IV Soln. 100ML PLUS BAG 100 ML IV SCH ×2 (00:16→06:16)
[2016-07-25 06:22] LABS: Mean Cell Volume 93.7 fl (78-100); Mean Corpuscular Hemoglobin 30.7 pg (26-32); Mean Platelet Volume 10.4 fl (6-9.5); Platelet Count 64 K/mm3 (150-450); Red Blood Count 4.27 M/mm3 (4.1-5.4); Red Cell Distribution Width 19.5 % (11.5-14.0); White Blood Count 3.3 K/mm3 (4.0-10.5)
[2016-07-25 06:49] LABS: ANION GAP 10.4 MEQ/L (5-15); Carbon Dioxide 22.6 mEq/L (21-32); Potassium 3.8 mEq/L (3.5-5.1)
--- NOTE | 2016-07-25 08:30 | PCM.DCORD ---
- Discharge Discharge Date: 07/25/16 Disposition: DC TO [facility] Condition: Stable Prescriptions: New Levofloxacin [Levofloxacin 500 MG Tablet] 500 mg PO QAM #5 tablet Metoprolol Tartrate 25 mg [Lopressor 25MG Tab] 25 mg PO BID #60 tab Continue Aspirin 81 gm Chew [Baby Aspirin 81 mg Chew] 81 mg PO UD Polyethylene Glycol 3350 [Miralax Powder] 17 gm DAILY Furosemide [Lasix] 40 mg DAILY Esomeprazole Magnesium [Nexium] 20 mg PO DAILY Levothyroxine Sodium 75 Mcg [Synthroid 75 Mcg] 75 mcg PO DAILY Apixaban [Eliquis] 5 mg PO BID Nystatin/TCN/Hc/Diphenhydram [Xenia's Magic Mouthwash] 5 ml PO QID Hydrocodone/Acetaminophen [Cohoes 5-325 Tablet] 1 each PO Q4HPRN PRN PRN Reason: Pain Acetaminophen 325 mg [Tylenol 325 mg] 650 mg PO Q4HPRN PRN PRN Reason: Mild Pain Bisacodyl 10 mg [Dulcolax 10 MG SUPP] 10 mg RC DAILY PRN PRN PRN Reason: Constipation Changed Eszopiclone 1 mg PO HS PRN #30 PRN Reason: Insomnia Discontinued Atenolol 25 mg DAILY Follow up with: JACKSON LEVI [Primary Care Provider] -
[2016-07-25] MEDS: ELIQUIS PO SCH (08:51)
[2016-07-25] MEDS: Nystatin SUSPENSION 60 ML PO SCH (08:52)
[2016-07-25] MEDS: Protonix 40MG Tablet PO SCH (08:52)
[2016-07-25] MEDS: SYNTHROID 75 MCG PO SCH (08:53)
[2016-07-25] MEDS ORDERED: VANCOCIN 1 GM VIAL*** 1 GM in Sodium Chloride 0.9% 250 ML 250 ML IV SCH (10:00)
[2016-07-25 11:20] VITALS: BP 132/66; PULSE 88; O2SAT 98
--- NOTE | 2016-07-25 19:16 | PCM.DS ---
Discharge Summary Date of Admission: 07/22/16 14:19 Date of Discharge: 07/25/16 Admitting Physician: JACKSON LEVI Primary Care Provider: JACKSON LEVI Allergies Allergies No Known Drug Allergies Allergy (Unverified 07/22/16 11:37) Hospital Summary - Hospital Course Hospital Course: Mrs. Larose was at [facility] for weakness and was having some slight cough but woke the morning of admission very weak lethargic and with low bp. 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 She responded well to fluid resuscitation with improvement in blood pressure and pulse. Her temperature improved but then went too low and had to be given warming blanket. She was treated with vanc+zosyn as well as hydrocortisone. She did well on this and her labs and mentation were improving she had no further fever events. She was given 4 days of the antibiotics and discharged back to [facility] to complete a levaquin coarse. SHe did continue to have trouble swallowing that she has had since prior to arrival due to mouth sores that are improving and prevent her from using her teeth. She swallows liquids with no difficulty but refuses solids for fear of it "getting caught" in her mouth she notes. She is swallowing pills now. She has swelling in her legs and has a pressure ulceration of her right heal. Her mental impairment resolved by time of discharge but still has difficulty with her short term memory which appears to be chronic and may have some early dementia. - Vitals & Intake/Output Vital Signs: Vital Signs Temperature 97.7 F 07/25/16 11:19 Pulse Rate 88 07/25/16 11:19 Respiratory Rate 20 07/25/16 11:19 Blood Pressure 132/66 07/25/16 11:19 O2 Sat by Pulse Oximetry 98 07/25/16 11:19 Oxygen-Last Documented O2 Percentage 2 Liters = 28% Intake & Output: Intake & Output 07/23/16 07/24/16 07/25/16 07/26/16 11:59 11:59 11:59 11:59 Intake Total 1391 2890 700 Output Total 600 550 650 Balance 791 2340 50 Weight 82.645 kg 82.645 kg - Lab Result Diagrams: 07/25/16 05:15 07/25/16 05:15 Lab Results-Last 24 Hrs: Lab Results-Last 24 Hours 07/25/16 07/25/16 Range/Units 05:15 05:15 WBC 3.3 L (4.0-10.5) K/mm3 RBC 4.27 (4.1-5.4) M/mm3 Hgb 13.1 (12.0-16.0) gm/dl Hct 40.0 (35-47) % MCV 93.7 (78-100) fl MCH 30.7 (26-32) pg MCHC 32.8 (32-36) g/dl RDW 19.5 H (11.5-14.0) % Plt Count 64 L (150-450) K/mm3 MPV 10.4 H (6-9.5) fl Sodium 138 (136-145) mEq/L Potassium 3.8 (3.5-5.1) mEq/L Chloride 109 H (98-107) mEq/L Carbon Dioxide 22.6 (21-32) mEq/L Anion Gap 10.4 (5-15) MEQ/L BUN 25 H (9-20) mg/dL Creatinine 1.03 (0.55-1.30) mg/dl Estimated GFR 54 ML/MIN Glucose 95 (70-110) MG/DL Calcium 7.6 L (8.5-10.1) mg/dL Slides for Path Review YES Micro Results-Entire Visit: Microbiology 07/23/16 10:10 - Final Urine, Indwelling Catheter NO GROWTH - Procedures and Test Procedures and Tests throughout Hospitalization: Therapy Orders & Screens 07/22/16 15:12 OT Screen per Nursing Assess Comment: Protocol Order Physician Instructions: Greater than 3 points order OT Admission Screening Reason For Exam: Triggered on Admission Diagnosis: SEPSIS, HEALTHCARE ACQUIRED PNEUMONIA Open Wound/Cellutlitis/Pressure Ulcers: No Acute Fx/ORIF/Change in wt bearing status: No Severe MUSCULOSKELETAL pain: No ADL Dysfunction: Yes Acute CVA w/Hemiparesis/Hemiplegia: No Decreased Functional Mobility/Strength: Yes Sprain/Strain: No Acute Post-op Mobility Dysfunction: No Total Points: 4 PT Screen per Nursing Assess Comment: Protocol Order Physician Instructions: Greater than 3 points order PT Admission Screenin Reason For Exam: Triggered on Admission Diagnosis: SEPSIS, HEALTHCARE ACQUIRED PNEUMONIA Open Wound/Cellutlitis/Pressure Ulcers: No Acute Fx/ORIF/Change in wt bearing status: No Severe MUSCULOSKELETAL pain: No ADL Dysfunction: Yes Acute CVA w/Hemiparesis/Hemiplegia: No Decreased Functional Mobility/Strength: Yes Sprain/Strain: No Acute Post-op Mobility Dysfunction: No Total Points: 4 ST Screen per Nursing Assess Comment: Protocol Order Physician Instructions: Greater than [address] Admission Screening Reason For Exam: Triggered on Admission Diagnosis: SEPSIS, HEALTHCARE ACQUIRED PNEUMONIA CVA/Dyshpagia/Aphasia: No Cognitive Deficits: No Dehydration/Nutrition Deficit: No Reflux: No Oral-Motor Difficulties: Yes Pneumonia: No Custodial Resident: Yes Total Points: 8 07/22/16 16:20 Oxygen NASAL CANNULA 2 lpm Comment: Diagnosis: SEPSIS, HEALTHCARE ACQUIRED PNEUMONIA 07/24/16 08:51 Speech Therapy Eval & Treat [ Eval & Treat (MD Order)] .as ordered Comment: Physician Instructions: Reason For Exam: Evaluate: Yes Treat: Yes Reason for Eval: difficulty swallowing Diagnosis: SEPSIS, HEALTHCARE ACQUIRED PNEUMONIA Discharge Exam General Appearance: no apparent distress, alert Neurologic Exam: alert, oriented x 3, cooperative, normal mood/affect, nml cerebellar function, sensation nml, No motor deficits Skin Exam: normal color, warm, dry Eye Exam: PERRL, EOMI, eyes nml inspection Ears, Nose, Throat Exam: moist mucous membranes, other (small vessicle on the right soft pallet) Neck Exam: normal inspection, non-tender, supple, full range of motion Respiratory Exam: crackles/rales (bibasilar) Cardiovascular Exam: regular rate/rhythm, murmur, edema (2+ suma LE) Gastrointestinal/Abdomen Exam: soft, No tenderness, No mass Extremity Exam: normal inspection, normal range of motion, other (pressure ulceration right heal) Back Exam: normal inspection, normal range of motion, No CVA tenderness, No vertebral tenderness Pelvic Exam: deferred Rectal Exam: deferred Final Diagnosis/Problem List - Final Discharge Diagnosis/Problem (1) Severe sepsis Status: Resolved (2) Pneumonia Status: Acute (3) Toxic metabolic encephalopathy Status: Resolved (4) Thrombocytopenia Status: Acute (5) Acute renal failure Status: Resolved (6) Dehydration Status: Resolved (7) Diarrhea Status: Resolved (8) Elevated troponin Status: Acute (9) Personal history of transient ischemic attack (TIA), and cerebral infarction without residual deficits Status: Chronic - Discharge Disposition: Skilled Care @ [facility] Condition: Stable Prescriptions: Continue Aspirin 81 gm Chew [Baby Aspirin 81 mg Chew] 81 mg PO UD Polyethylene Glycol 3350 [Miralax Powder] 17 gm DAILY Furosemide [Lasix] 40 mg DAILY Esomeprazole Magnesium [Nexium] 20 mg PO DAILY Levothyroxine Sodium 75 Mcg [Synthroid 75 Mcg] 75 mcg PO DAILY Apixaban [Eliquis] 5 mg PO BID Nystatin/TCN/Hc/Diphenhydram [Xenia's Magic Mouthwash] 5 ml PO QID Hydrocodone/Acetaminophen [Moore 5-325 Tablet] 1 each PO Q4HPRN PRN PRN Reason: Pain Acetaminophen 325 mg [Tylenol 325 mg] 650 mg PO Q4HPRN PRN PRN Reason: Mild Pain Bisacodyl 10 mg [Dulcolax 10 MG SUPP] 10 mg RC DAILY PRN PRN PRN Reason: Constipation Levofloxacin [Levofloxacin 500 MG Tablet] 500 mg PO QAM #5 tablet Metoprolol Tartrate 25 mg [Lopressor 25MG Tab] 25 mg PO BID #60 tab Changed Eszopiclone 1 mg PO HS PRN #30 PRN Reason: Insomnia Discontinued Atenolol 25 mg DAILY Instructions: Pneumonia -- Adult Follow up with: JACKSON LEVI [Primary Care Provider] - Forms: Ambulance Transport Record, Discharge Instructions, Discharge Skin Assessment, Patient Portal Information, Transfer Record Inter-Agency, Transfer Record Custodial
== END 2016-07-25 11:25 | DRG 871 ==
LOC: ED 10:46 → MED SURG 14:19
PROVIDERS: ADMIT Family Medicine; ATTEND Family Medicine
DX: R65.20 Severe sepsis without septic shock (principal); J18.9 Pneumonia, unspecified organism; G92 Toxic encephalopathy; N17.9 Acute kidney failure, unspecified; D47.3 Essential (hemorrhagic) thrombocythemia; E86.0 Dehydration; R19.7 Diarrhea, unspecified; R79.89 Other specified abnormal findings of blood chemistry; Z86.73 Personal history of transient ischemic attack (TIA), and cerebral infarction without residual deficits; Z79.01 Long term (current) use of anticoagulants; Z79.899 Other long term (current) drug therapy; K59.00 Constipation, unspecified; I10 Essential (primary) hypertension; E03.9 Hypothyroidism, unspecified; M19.90 Unspecified osteoarthritis, unspecified site; K21.9 Gastro-esophageal reflux disease without esophagitis
CPT/HCPCS: 36000; 36415; 36600; 70450; 74022; 80048; 80053; 80202; 81000; 81002; 82140; 82375; 82803; 83605; 84484; 85025; 85027; 87040; 87086; 87493; 87631; 93005; 93041; 94760; 96360; 96361; 96365; 99285; J1720; J2543; J3370; P9612; A9270-GY

== ENCOUNTER 2016-08-06 13:00 | Inpatient (IN) | payer MEDICARE, OTHER ==
[2016-08-06] MEDS ORDERED: Zofran 4 MG/2 ML VIAL IV PRN (13:37)
[2016-08-06] MEDS ORDERED: TYLENOL 325 MG PO PRN (13:37)
[2016-08-06] MEDS: Lasix 40 MG/4 ML IV SCH (14:38)
[2016-08-06 14:52] LABS: Mean Cell Volume 89.8 fl (78-100); Mean Corpuscular Hemoglobin 30.9 pg (26-32); Mean Platelet Volume 11.9 fl (6-9.5); Platelet Count 80 K/mm3 (150-450); Red Blood Count 4.89 M/mm3 (4.1-5.4); Red Cell Distribution Width 20.9 % (11.5-14.0); White Blood Count 5.1 K/mm3 (4.0-10.5)
--- NOTE | 2016-08-06 15:10 | PCM.HP ---
History of Present Illness - Chief Complaint Chief Complaint: volume overload, vomiting Date: 08/06/16 History of Present Illness: is a 85 year old female. who has becoming more edematous and gaining weight in the ecf despite her lack of po intake of any significance and now reporting that she is vomitting up every time she takes any pills. She was also found to have worsening bruising and right sided face skin changes purple in nature today after turning to clean. SHe notes her abdomen hurts all over at times and she vomits. Also hurts between shoulder blades at times. SHe continues to not be able to swallow well and this seems to continue to cause her problems. She has not had any reported fevers. When she takes pain medicine it seems to make her have more confusion. - Review of Systems Constitutional: Fatigue, Lethargy, No Fever, No Chills Eyes: No Discharge, No Eye Pain, No Eye Redness Ears, Nose, & Throat: Mouth Pain, No Ear Pain, No Ear Discharge, No Hearing Changes, No Throat Swelling, No Painful Swallowing Respiratory: No Cough, No Short Of Breath Cardiac: Edema, No Chest Pain, No Palpitations, No Syncope, No Orthopnea Abdominal/Gastrointestinal: Abdominal Pain, Nausea, Vomiting, No Diarrhea, No Constipation Genitourinary Symptoms: No Dysuria, No Hematuria, No Incontinence, No Urinary Retention Musculoskeletal: Arthralgias, Back Pain, No Joint Redness Skin: Decubiti, No Cellulitis Neurological: No Dizziness, No Focal Weakness, No Seizure Psychological: No Alcohol Abuse, No Drug Abuse Hematologic/Lymphatic: Easy Bleeding, Easy Bruising Medications & Allergies Home Medications: Home Medication List Acetaminophen 325 mg [Tylenol 325 mg] 650 mg PO Q4HPRN PRN 07/22/16 [ History Confirmed 08/06/16] Apixaban [Eliquis] 5 mg PO BID 07/22/16 [History Confirmed 08/06/16] Bisacodyl 10 mg [Dulcolax 10 MG SUPP] 10 mg RC DAILY PRN PRN 07/22/16 [ History Confirmed 08/06/16] Esomeprazole Magnesium [Nexium] 20 mg PO DAILY 07/22/16 [History Confirmed 08/06] Furosemide [Lasix] 40 mg PO 0600,1200 07/22/16 [History Confirmed 08/06/16] Hydrocodone/Acetaminophen [[place] 5-325 Tablet] 1 each PO Q4HPRN PRN 07/22/16 [ History Confirmed 08/06/16] Levothyroxine Sodium 75 Mcg [Synthroid 75 Mcg] 75 mcg PO 0600 07/22/16 [ History Confirmed 08/06/16] Polyethylene Glycol 3350 [Miralax Powder] 17 gm PO DAILY 07/22/16 [History Confirmed 08/06/16] Metoprolol Tartrate 25 mg [Lopressor 25MG Tab] 25 mg PO BID #60 tab [Rx Confirmed 08/06/16] Aspirin 81 mg PO UD 08/06/16 [History Confirmed 08/06/16] Eszopiclone 1 mg PO HS PRN PRN 08/06/16 [History Confirmed 08/06/16] Ondansetron [Zofran Odt] 4 mg PO 0830,2030 08/06/16 [History Confirmed 08/06/16] Saliva Stimulant Agents Comb.3 [Biotene Moisturizing Mouth] 1 spray PO UD [History Confirmed 08/06/16] Allergies/Adverse Reactions: Allergies Allergy/AdvReac Type Severity Reaction Status Date / Time No Known Drug Allergies Allergy Verified 08/06/16 13:27 - Past Medical History Past Medical History: Yes Neurological History: Stroke ENT History: No Pertinent History Cardiac History: Hypertension Respiratory History: No Pertinent History Endocrine Medical History: Hypothyroidism Musculoskelatal History: Osteoarthritis GI Medical History: GERD History: No Pertinent History Pyscho-Social History: No Pertinent History Reproductive Disorders: No Pertinent History - Female History Are you now?: No - Past Surgical History Past Surgical History: Yes Neuro Surgical History: No Pertinent History Cardiac History: No Pertinent History Respiratory Surgery: No Pertinent History GI Surgical History: Hernia Repair Genitourinary Surgical Hx: No Pertinent History Musculskeletal Surgical Hx: No Pertinent History Female Surgical History: No Pertinent History - Social History Smoking Status: Never smoker Exposure to second hand smoke: No Alcohol: None Drug Use: none - Physical Exam Vital Signs: Vital Signs - 24 hr Temp Pulse Resp BP Pulse Ox 08/06/16 13:37 97.2 F 71 18 118/56 90 L 08/06/16 13:25 97.2 F 71 18 118/56 90 L 08/06/16 13:13 97.2 F 71 18 118/56 90 L General Appearance: no apparent distress, alert Neurologic Exam: oriented x 3, cooperative Eye Exam: pale conjunctivae, No scleral icterus Ears, Nose, Throat Exam: moist mucous membranes, other (no dntition mild soft palate irritation and rednes) Neck Exam: non-tender, supple, No meningismus, No mass, No JVD, No lymphadenopathy, No subcutaneous emphysema Respiratory Exam: crackles/rales (bibasilar) Cardiovascular Exam: regular rate/rhythm, normal heart sounds, normal peripheral pulses, edema (4+ pitting bilateral lower extremity), No murmur Gastrointestinal/Abdomen Exam: soft, normal bowel sounds, tenderness (diffuse all 4 quadrants with no rebound or guarding no flank pain) Back Exam: normal inspection, No CVA tenderness Extremity Exam: normal inspection, pedal edema, No calf tenderness Skin Exam: warm, dry, petechiae, ecchymosis Assessment/Plan (1) Abdominal pain Current Visit: Yes Status: Acute Assessment & Plan: etiology unclear check CT abdomen use zofran prn for the nausea monitor for fever or abnormal vital signs. Code(s): R10.9 - UNSPECIFIED ABDOMINAL PAIN (2) Vomiting Current Visit: Yes Status: Acute Code(s): R11.10 - VOMITING, UNSPECIFIED (3) Volume overload Current Visit: Yes Status: Acute Assessment & Plan: likely secondary to her low albumin from malnutrition from poor po intake combined with her fluid resucitation from her recent treatment for pneumonia with severe sepsis 2 weeks ago will use hollins for accurate I/O use nutrition consult to help improve protein intake use lasix IV and monitor renal function. Code(s): E87.70 - FLUID OVERLOAD, UNSPECIFIED (4) Thrombocytopenia Current Visit: Yes Status: Chronic Assessment & Plan: ? liver or spleen disease vs drug reaction it has improved since she was treated for the sepsis. (5) History of stroke Current Visit: Yes Status: Acute Assessment & Plan: with her worening bruising and thrombocytopenia and petechia will stop the aspirin and continue the Eliquis for now. Code(s): Z86.73 - PRSNL HX OF TIA (TIA), AND CEREB INFRC W/O RESID DEFICITS
[2016-08-06 15:18] LABS: BAND 11 % (0.0-2.0); Basophil 1 % (0.0-1.0); Nucleated Red Blood Cell 1 %; Total Cells Counted 100
[2016-08-06 15:21] LABS: ANISOCYTOSIS 2+; Platelet Estimate DECREASED (NORMAL); Poikilocytosis 1+; Polychromasia RARE
[2016-08-06 15:22] LABS: Toxic Granulation 2+
[2016-08-06 15:25] LABS: ALBUMIN 1.5 g/dL (3.4-5.0); ANION GAP 12.1 MEQ/L (5-15); BILIRUBIN,TOTAL 1.5 mg/dL (0.2-1.0); Carbon Dioxide 25.8 mEq/L (21-32); Potassium 4.1 mEq/L (3.5-5.1)
[2016-08-06 15:31] LABS: Collection Type CATH
[2016-08-06 15:32] LABS: COMPLETE URINE MICROSCOPIC? YES; Ph 5.5 (5-6)
[2016-08-06 15:38] LABS: Bacteria MODERATE /HPF (NEGATIVE); Epithelial Cells MANY /HPF (FEW)
[2016-08-06] MEDS ORDERED: ESZOPICLONE 1 MG PO PRN (15:40)
[2016-08-06] MEDS ORDERED: Dulcolax 10 MG SUPP RC PRN (15:40)
[2016-08-06] MEDS ORDERED: SALIVA STIMULANT AGENTS COMB PO SCH (15:45)
[2016-08-06] MEDS ORDERED: Ambien 5 MG Tablet PO PRN (15:47)
[2016-08-06] MEDS ORDERED: MEDICATION INTERVENTION MC PRN (15:55)
--- NOTE | 2016-08-06 17:03 | XRAY ---
Indication: Abdomen pain and vomiting. Multiple contiguous axial images obtained through the abdomen and pelvis without contrast as ordered. Comparison: None Lung bases demonstrates bilateral lower lobe interstitial alveolar opacities with bibasilar dependent atelectasis. Heart is not enlarged. Noncontrasted stomach and bowel loops appear nonobstructed. Lower abdomen small bowel suture material intact. Normal appendix. No free fluid/air. Cholecystectomy clips present. There are tiny sub-5 mm gallstones adjacently presumed choledochal stones. No abnormal biliary distention. Spleen is enlarged measuring 19 cm in greatest dimension with tiny calcified splenic granulomas. Mild aortoiliac calcifications without AAA. At the level of aortic bifurcation, there is matted periaortic nodes, largest on the left measuring 2.0 x 2.2 cm. Additional matted lymph nodes seen along the left pelvis, largest measuring 1.9 x 2.3 cm. There is additional 1.5 x 2.4 cm matted nodes just proximal to the left inguinal canal. Solitary prominent 1.2 x 1.7 cm right inguinal node. There is IVC filter in situ. Urinary bladder demonstrates Rubalcava balloon catheter. Remaining liver, pancreas, adrenal glands, kidneys, ureters, and uterus appear unremarkable for noncontrast exam. Osseous structures intact with mild degenerative changes throughout the spine. Impression: 1. Distal periaortic, left iliac chain, and left lower quadrant matted lymphadenopathy. Solitary prominent right inguinal lymph node. Findings may be reactive but cannot completely exclude malignancy in the right clinical setting. 2. 19 cm splenomegaly. 3. Previous cholecystectomy with probable tiny choledochal stones. 4. Bilateral lower lobe hazy interstitial alveolar opacities. CTDI 33.27
[2016-08-06] MEDS ORDERED: ELIQUIS PO SCH (22:00)
[2016-08-06] MEDS: Lopressor 25MG Tab PO SCH (23:03)
[2016-08-07] MEDS: NORCO 5/325 MG PO PRN ×3 (03:47→21:54)
[2016-08-07] MEDS: Lasix 40 MG/4 ML IV SCH ×2 (03:49→14:15)
[2016-08-07 05:41] LABS: Mean Corpuscular Hemoglobin 30.8 pg (26-32); Mean Platelet Volume 11.5 fl (6-9.5); Platelet Count 76 K/mm3 (150-450); Red Blood Count 4.42 M/mm3 (4.1-5.4); Red Cell Distribution Width 20.6 % (11.5-14.0); White Blood Count 5.2 K/mm3 (4.0-10.5)
[2016-08-07] MEDS ORDERED: SYNTHROID 75 MCG PO SCH (06:00)
[2016-08-07 06:15] LABS: ALBUMIN 1.6 g/dL (3.4-5.0); ANION GAP 13.4 MEQ/L (5-15); BILIRUBIN,TOTAL 1.6 mg/dL (0.2-1.0); Carbon Dioxide 25.2 mEq/L (21-32); Potassium 3.9 mEq/L (3.5-5.1); Total Protein 4.7 gm/dL (6.4-8.2)
--- NOTE | 2016-08-07 08:48 | PCM.NOTE ---
Date and Time: 08/07/16 08 Subjective Assessment: she continues to not tolerate po otherwise she seems to be doing well. she has had inadequate po intake since the strokes and now for several months unable to adequately swallow. she feels alittle better today swelling unchanged. no new symptoms. Objective Exam General Appearance: no apparent distress Neurologic Exam: alert, oriented x 3 Skin Exam: warm, dry Ears, Nose, Throat Exam: moist mucous membranes, other (soft palate irritation) Respiratory Exam: normal breath sounds, lungs clear Cardiovascular Exam: regular rate/rhythm, normal peripheral pulses Gastrointestinal/Abdomen Exam: soft, normal bowel sounds, No tenderness, No distention Extremity Exam: normal inspection, pedal edema (4+ pitting edema lower extremity and elbows pitting edema as well.) OBJECTIVE DATA Vital Signs: Vital Signs - 24 hr Temp Pulse Resp BP Pulse Ox 08/07/16 08:00 97.6 F 100 H 18 123/82 93 L 08/07/16 07:06 100 H 20 93 L 08/07/16 04:26 98.7 F 97 H 20 109/59 97 08/06/16 23:46 98.5 F 92 H 15 105/57 96 08/06/16 20:41 95 08/06/16 19:38 98.1 F 91 H 20 117/66 96 08/06/16 15:55 96.7 F 88 20 111/57 95 08/06/16 13:37 97.2 F 71 18 118/56 90 L 08/06/16 13:25 97.2 F 71 18 118/56 90 L 08/06/16 13:13 97.2 F 71 18 118/56 90 L Oxygen-Last 24 hours O2 Percentage 2 Liters = 28% O2 Percentage 2 Liters = 28% O2 Percentage 2 Liters = 28% O2 Percentage 2 Liters = 28% O2 Percentage 2 Liters = 28% Pain Assessment - Last Documented Pain Intensity 10 Pain Scale Used 0-10 Pain Scale Intake and Output: Intake & Output 08/04/16 08/05/16 08/06/16 08/07/16 11:59 11:59 11:59 11:59 Intake Total 360 Output Total 550 Balance -190 Weight 86.591 kg Lab Results: Lab Results-Last 24 Hours 08/06/16 08/06/16 08/06/16 Range/Units 13:41 14:36 14:36 WBC 5.1 (4.0-10.5) K/mm3 RBC 4.89 (4.1-5.4) M/mm3 Hgb 15.1 (12.0-16.0) gm/dl Hct 43.9 (35-47) % MCV 89.8 (78-100) fl MCH 30.9 (26-32) pg MCHC 34.4 (32-36) g/dl RDW 20.9 H (11.5-14.0) % Plt Count 80 L (150-450) K/mm3 MPV 11.9 H (6-9.5) fl Segmented Neutrophils 48 (36.0-66.0) % Band Neutrophils 11 H (0.0-2.0) % Lymphocytes (Manual) 36 (24-44) % Monocytes (Manual) 4 (0.0-12.0) % Basophils (Manual) 1 (0.0-1.0) % Nucleated RBCs 1 % Differential Comment ABNORMAL Toxic Granulation 2+ Platelet Estimate DECREASED (NORMAL) Polychromasia RARE Poikilocytosis 1+ Anisocytosis 2+ Sodium 133 L (136-145) mEq/L Potassium 4.1 (3.5-5.1) mEq/L Chloride 99 (98-107) mEq/L Carbon Dioxide 25.8 (21-32) mEq/L Anion Gap 12.1 (5-15) MEQ/L BUN 34 H (9-20) mg/dL Creatinine 1.10 (0.55-1.30) mg/dl Estimated GFR 50 ML/MIN Glucose 122 H (70-110) MG/DL Calcium 7.3 L (8.5-10.1) mg/dL Total Bilirubin 1.50 H (0.2-1.0) mg/dL AST 93 H (15-37) U/L ALT 37 (12-78) U/L Alkaline Phosphatase 151 H (46-116) U/L NT-Pro-B Natriuret Pep 1373 H (0-450) pg/ml Serum Total Protein 5.0 L (6.4-8.2) gm/dL Albumin 1.5 L (3.4-5.0) g/dL Prealbumin 10.1 L (18.0-35.7) mg/dL TSH 3rd Generation (0.358-3.740) mIU/L Ur Collection Type CATH Urine Color YELLOW (YELLOW) Urine Appearance SLIGHTLY CLOUDY (CLEAR) Urine pH 5.5 (5-6) Ur Specific [place] 1.015 (1.005-1.025) Urine Protein NEGATIVE (Negative) Urine Glucose (UA) NEGATIVE (NEGATIVE) mg/dL Urine Ketones NEGATIVE (NEGATIVE) Urine Nitrite NEGATIVE (NEGATIVE) Urine Bilirubin NEGATIVE (NEGATIVE) Urine Urobilinogen 1 (0-1) mg/dL Urine WBC (Auto) TRACE (NEGATIVE) Urine RBC (Auto) TRACE HEMOLYZED (0-5) Bert/ul Urine Microscopic RBC 0-2 (0-2) /HPF Urine Microscopic WBC 5-10 (0-5) /HPF Ur Epithelial Cells MANY (FEW) /HPF Urine Bacteria MODERATE (NEGATIVE) /HPF Specimen Received 08/06/16 1537 08/07/16 08/07/16 Range/Units 05:33 05:33 WBC 5.2 (4.0-10.5) K/mm3 RBC 4.42 (4.1-5.4) M/mm3 Hgb 13.6 (12.0-16.0) gm/dl Hct 39.8 (35-47) % MCV 90.0 (78-100) fl MCH 30.8 (26-32) pg MCHC 34.2 (32-36) g/dl RDW 20.6 H (11.5-14.0) % Plt Count 76 L (150-450) K/mm3 MPV 11.5 H (6-9.5) fl Segmented Neutrophils (36.0-66.0) % Band Neutrophils (0.0-2.0) % Lymphocytes (Manual) (24-44) % Monocytes (Manual) (0.0-12.0) % Basophils (Manual) (0.0-1.0) % Nucleated RBCs % Differential Comment Toxic Granulation Platelet Estimate (NORMAL) Polychromasia Poikilocytosis Anisocytosis Sodium 135 L (136-145) mEq/L Potassium 3.9 (3.5-5.1) mEq/L Chloride 100 (98-107) mEq/L Carbon Dioxide 25.2 (21-32) mEq/L Anion Gap 13.4 (5-15) MEQ/L BUN 31 H (9-20) mg/dL Creatinine 1.15 (0.55-1.30) mg/dl Estimated GFR 48 ML/MIN Glucose 106 (70-110) MG/DL Calcium 6.9 L (8.5-10.1) mg/dL Total Bilirubin 1.60 H (0.2-1.0) mg/dL AST 87 H (15-37) U/L ALT 39 (12-78) U/L Alkaline Phosphatase 148 H (46-116) U/L NT-Pro-B Natriuret Pep (0-450) pg/ml Serum Total Protein 4.7 L (6.4-8.2) gm/dL Albumin 1.6 L (3.4-5.0) g/dL Prealbumin (18.0-35.7) mg/dL TSH 3rd Generation 7.495 H (0.358-3.740) mIU/L Ur Collection Type Urine Color (YELLOW) Urine Appearance (CLEAR) Urine pH (5-6) Ur Specific [place] (1.005-1.025) Urine Protein (Negative) Urine Glucose (UA) (NEGATIVE) mg/dL Urine Ketones (NEGATIVE) Urine Nitrite (NEGATIVE) Urine Bilirubin (NEGATIVE) Urine Urobilinogen (0-1) mg/dL Urine WBC (Auto) (NEGATIVE) Urine RBC (Auto) (0-5) Bert/ul Urine Microscopic RBC (0-2) /HPF Urine Microscopic WBC (0-5) /HPF Ur Epithelial Cells (FEW) /HPF Urine Bacteria (NEGATIVE) /HPF Specimen Received Radiology Exams: Radiology Procedures Category Date Time Status ABDOMEN AND PELVIS W/0 CONTRAS [CT] Routine Exams 08/06/16 15:50 Completed Assessment/Plan (1) Malnutrition Current Visit: Yes Status: Acute Assessment & Plan: protein calorie following stroke with inadequate po protein intake consult general surgery for PEG tube consideration will hold her Eliquis starting today Code(s): E46 - UNSPECIFIED PROTEIN-CALORIE MALNUTRITION (2) Lymphadenopathy Current Visit: Yes Status: Acute Assessment & Plan: with the splenomegaly. THis could be left over reactive from her severe sepsis 2 weeks ago that she has just completed treatment versus an occult infection versus underlaying malignancy last colonoscopy was many years ago. she has no previous history of cancer. work on improving protein nutrition and then will consider heme/onc f/u and re-evaluation getting old records to compare to any previous imaging. Code(s): R59.1 - GENERALIZED ENLARGED LYMPH NODES (3) Splenomegaly Current Visit: Yes Status: Acute Code(s): R16.1 - SPLENOMEGALY, NOT ELSEWHERE CLASSIFIED (4) Abdominal pain Current Visit: Yes Status: Acute Code(s): R10.9 - UNSPECIFIED ABDOMINAL PAIN (5) Vomiting Current Visit: Yes Status: Acute Code(s): R11.10 - VOMITING, UNSPECIFIED (6) Volume overload Current Visit: Yes Status: Acute Code(s): E87.70 - FLUID OVERLOAD, UNSPECIFIED (7) Thrombocytopenia Current Visit: Yes Status: Chronic (8) History of stroke Current Visit: Yes Status: Acute Code(s): Z86.73 - PRSNL HX OF TIA (TIA), AND CEREB INFRC W/O RESID DEFICITS
[2016-08-07] MEDS: Miralax Powder 17GM PACKET PO SCH (09:50)
[2016-08-07] MEDS: Protonix 40MG Tablet PO SCH (09:50)
[2016-08-07] MEDS: Lopressor 25MG Tab PO SCH ×2 (09:50→21:54)
[2016-08-07] MEDS ORDERED: POLYETHYLENE GLYCOL PO SCH (10:00)
[2016-08-08] MEDS: Lasix 40 MG/4 ML IV SCH ×2 (02:03→11:46)
[2016-08-08 06:02] LABS: Mean Cell Volume 90.9 fl (78-100); Mean Corpuscular Hemoglobin 30.7 pg (26-32); Mean Platelet Volume 11.3 fl (6-9.5); Platelet Count 85 K/mm3 (150-450); Red Blood Count 4.63 M/mm3 (4.1-5.4); Red Cell Distribution Width 21.7 % (11.5-14.0); White Blood Count 5.9 K/mm3 (4.0-10.5)
[2016-08-08 06:23] LABS: ANION GAP 12.5 MEQ/L (5-15); Potassium 3.6 mEq/L (3.5-5.1)
[2016-08-08] MEDS: Protonix 40MG Tablet PO SCH (07:22)
[2016-08-08] MEDS: Lopressor 25MG Tab PO SCH ×2 (07:22→22:10)
[2016-08-08] MEDS: Miralax Powder 17GM PACKET PO SCH (07:52)
[2016-08-08] MEDS ORDERED: DEMEROL 50 MG IV ONE (08:00)
[2016-08-08] MEDS ORDERED: VERSED 5 MG/5 ML IV ONE (08:00)
[2016-08-08] MEDS: ROCEPHIN 1 Gm-D5w 50 ml Bag** 1 G/50 ML IVPB IV SCH ×2 (09:31→09:33)
[2016-08-08] MEDS: SYNTHROID 100 MCG PO SCH (09:31)
[2016-08-08] MEDS ORDERED: Lactated Ringers 1,000 ML IV SCH (11:30)
--- NOTE | 2016-08-08 19:37 | PCM.NOTE ---
Date and Time: 08/08/161931 Subjective Assessment: she is thirsty today has been sleeping lots otherwise no complaints no vomiting the abdominal pain is controlled. OBJECTIVE DATA Vital Signs: Vital Signs - 24 hr Temp Pulse Resp BP Pulse Ox 08/08/16 19:24 98.5 F 95 H 18 101/52 95 08/08/16 18:28 103/52 08/08/16 16:55 102/57 08/08/16 15:55 87 20 109/52 96 08/08/16 15:25 98.1 F 85 20 109/52 94 L 08/08/16 14:55 86 20 98/50 94 L 08/08/16 14:40 97.7 F 87 20 106/52 90 L 08/08/16 13:00 97.6 F 86 20 112/59 100 08/08/16 07:34 97.2 F 94 H 18 133/59 97 08/08/16 07:17 96 H 20 97 08/08/16 03:50 97.8 F 76 20 102/53 98 08/07/16 23:51 97.9 F 87 19 101/51 95 08/07/16 20:33 95 08/07/16 19:42 98.9 F 87 18 113/54 94 L Oxygen-Last 24 hours O2 Percentage 2 Liters = 28% O2 Percentage 2 Liters = 28% O2 Percentage 2 Liters = 28% O2 Percentage 2 Liters = 28% O2 Percentage 2 Liters = 28% O2 Percentage 2 Liters = 28% O2 Percentage 2 Liters = 28% O2 Percentage 2 Liters = 28% O2 Percentage 2 Liters = 28% O2 Percentage 2 Liters = 28% Pain Assessment - Last Documented Pain Intensity 4 Pain Scale Used FLACC Intake and Output: Intake & Output 08/06/16 08/07/16 08/08/16 08/09/16 11:59 11:59 11:59 11:59 Intake Total 660 740 Output Total 550 900 450 Balance 110 -160 -450 Weight 86.591 kg 84.414 kg Lab Results: Lab Results-Last 24 Hours 08/08/16 08/08/16 08/08/16 Range/Units 05:40 05:40 05:40 WBC 5.9 (4.0-10.5) K/mm3 RBC 4.63 (4.1-5.4) M/mm3 Hgb 14.2 (12.0-16.0) gm/dl Hct 42.1 (35-47) % MCV 90.9 (78-100) fl MCH 30.7 (26-32) pg MCHC 33.7 (32-36) g/dl RDW 21.7 H (11.5-14.0) % Plt Count 85 L (150-450) K/mm3 MPV 11.3 H (6-9.5) fl Sodium 135 L (136-145) mEq/L Potassium 3.6 (3.5-5.1) mEq/L Chloride 100 (98-107) mEq/L Carbon Dioxide 26.0 (21-32) mEq/L Anion Gap 12.5 (5-15) MEQ/L BUN 30 H (9-20) mg/dL Creatinine 1.11 (0.55-1.30) mg/dl Estimated GFR 50 ML/MIN Glucose 101 (70-110) MG/DL Calcium 7.3 L (8.5-10.1) mg/dL NT-Pro-B Natriuret Pep 2083 H (0-450) pg/ml Slides for Path Review YES Assessment/Plan (1) UTI (urinary tract infection) Current Visit: Yes Status: Acute Assessment & Plan: start Rocephin Code(s): N39.0 - URINARY TRACT INFECTION, SITE NOT SPECIFIED (2) Malnutrition Current Visit: Yes Status: Acute Assessment & Plan: with severe protein malnutrition from her lack of ability to swallow solids now for several months. SHe has had multiple trials of different things as well as speech consult and has not been able to maintain adequate nutrition. She has nonhealing pressure sores, and has had persistent functional decline from her previous stroke that was found on work up at [facility]. After long discussion yesterday morning with Angelique and her grand daughters she did elect to try a feeding tube to improve her nutritional status to hopefully get her swelling better controlled and heal her wounds and improve her functional ability as she was living at home still about 1 month ago. Code(s): E46 - UNSPECIFIED PROTEIN-CALORIE MALNUTRITION (3) Lymphadenopathy Current Visit: Yes Status: Acute Assessment & Plan: abdominal with the matted nodes and inguinal as well with the spenomegaly concern for possible hiding malignancy. With her current poor nutritional status I believe she would be a very high risk for healing from any surgical biopsy. She was also just treated for severe sepsis 2 weeks ago. will monitor the lymphadenopathy and symptoms and splenomegaly and discussed possible heme/onc consultation on these findings. Code(s): R59.1 - GENERALIZED ENLARGED LYMPH NODES (4) Splenomegaly Current Visit: Yes Status: Acute Code(s): R16.1 - SPLENOMEGALY, NOT ELSEWHERE CLASSIFIED (5) Abdominal pain Current Visit: Yes Status: Acute Code(s): R10.9 - UNSPECIFIED ABDOMINAL PAIN (6) Vomiting Current Visit: Yes Status: Acute Code(s): R11.10 - VOMITING, UNSPECIFIED (7) Volume overload Current Visit: Yes Status: Acute Code(s): E87.70 - FLUID OVERLOAD, UNSPECIFIED (8) Thrombocytopenia Current Visit: Yes Status: Chronic (9) History of stroke Current Visit: Yes Status: Acute Code(s): Z86.73 - PRSNL HX OF TIA (TIA), AND CEREB INFRC W/O RESID DEFICITS
[2016-08-08] MEDS: NORCO 5/325 MG PO PRN (22:53)
[2016-08-09] MEDS ORDERED: Nitrostat 0.4 MG Tablet SL ONE (01:54)
[2016-08-09] MEDS ORDERED: Nitrostat 0.4 MG Tablet SL PRN (02:19)
[2016-08-09] MEDS ORDERED: Ecotrin 325 MG PO ONE (02:20)
[2016-08-09] MEDS: Lasix 40 MG/4 ML IV SCH ×2 (02:46→03:11)
[2016-08-09] MEDS ORDERED: Sodium Chloride 0.9% 500 ML 500 ML IV ONE ×2 (03:00→03:04)
[2016-08-09] MEDS: NORCO 5/325 MG PO PRN ×3 (03:28→20:04)
--- NOTE | 2016-08-09 08:47 | OP ---
SURGERY DATE: 08/08/16 SURGERY TIME: 1350 PREOPERATIVE DIAGNOSIS: 1. INABILITY TO MAINTAIN NUTRITION. POSTOPERATIVE DIAGNOSIS: 1. INABILITY TO MAINTAIN NUTRITION. PROCEDURE: 1. Percutaneous endoscopic gastrostomy tube placement. SURGEON: Juan Lee M.D. ANESTHESIA: IV sedation. COMPLICATIONS: None. CONDITION: Stable. INDICATION: Patient requiring percutaneous endoscopic gastrostomy tube placement. OPERATIVE PROCEDURE: Routine prep and drape. Gastroscope was placed. It was seen against the anterior abdominal wall. 1% Lidocaine. Prep, drape, Angiocath, wire. Catheter pulled through. Seated at 3 cm. Patient tolerated the procedure satisfactory with oximetry kept over 90%.
--- NOTE | 2016-08-09 10:09 | XRAY ---
Indication: Chest pain. Comparison: July 22, 2016. Portable chest is now clear. Heart is not enlarged for AP portable technique. Vascularity normal. Bony thorax intact again with mild osteopenia and degenerative changes. Impression: Nonacute chest with chronic features. Comment: Preliminary interpretation was made by [facility]. No critical discrepancy.
[2016-08-09] MEDS: Lopressor 25MG Tab PO SCH ×2 (10:13→21:27)
[2016-08-09] MEDS: Miralax Powder 17GM PACKET PO SCH (10:15)
[2016-08-09] MEDS: Protonix 40MG Tablet PO SCH (10:15)
[2016-08-09] MEDS: SYNTHROID 100 MCG PO SCH (10:15)
[2016-08-09] MEDS: ROCEPHIN 1 Gm-D5w 50 ml Bag** 1 G/50 ML IVPB IV SCH (10:15)
[2016-08-09] MEDS: TYLENOL 325 MG PO PRN (12:51)
--- NOTE | 2016-08-09 20:34 | PCM.NOTE ---
Date and Time: 08/09/162029 Subjective Assessment: she is still swelling. She had chest pain in the center of her chest burning sensation last night 11/10 resulting in tachycardia and discomfort. She was given aspirin and nitro. This resulted in bp lowering and increased tachycardia with no improvement in pain and she was given a 500 mL/bolus and her norco for pain. She had troponins drawn that were trending down and EKG with chronic LBBB no change. This am she is no longer having any of the chest pain she is tired still and some diffuse abdominal pains now. No vomiting. Objective Exam General Appearance: no apparent distress Neurologic Exam: alert, oriented x 3, cooperative Skin Exam: warm, dry Respiratory Exam: normal breath sounds Cardiovascular Exam: regular rate/rhythm, normal peripheral pulses Gastrointestinal/Abdomen Exam: soft, normal bowel sounds, tenderness (mild diffuse PEG tube clean dry incision) Extremity Exam: pedal edema (4+ pitting edema in bilateral lower legs and the elbows bilaterally that are dependent.) OBJECTIVE DATA Vital Signs: Vital Signs - 24 hr Temp Pulse Resp BP BP Pulse Ox 08/09/16 20:14 93 L 08/09/16 16:00 97.5 F 107 H 20 128/61 91 L 08/09/16 12:00 97.8 F 105 H 20 122/59 94 L 08/09/16 08:27 103 H 20 96 08/09/16 08:00 98.0 F 102 H 20 97/52 96 08/09/16 04:00 98.4 F 120 H 20 113/60 94 L 08/09/16 02:24 122 H 101/57 08/08/16 23:00 98.5 F 104 H 17 115/53 92 L Oxygen-Last 24 hours O2 Percentage 2 Liters = 28% O2 Percentage 2 Liters = 28% O2 Percentage 2 Liters = 28% Pain Assessment - Last Documented Pain Intensity 10 Pain Scale Used [facility] Intake and Output: Intake & Output 08/07/16 08/08/16 08/09/16 08/10/16 11:59 11:59 11:59 11:59 Intake Total 660 740 560 240 Output Total 550 900 850 500 Balance 110 -160 -290 -260 Weight 86.591 kg 84.414 kg 86.591 kg Lab Results: Lab Results-Last 24 Hours 06/09/17 06/09/17 Range/Units 02:30 05:30 Troponin I 0.019 0.017 (0.000-0.056) ng/ml Radiology Exams: Radiology Procedures Category Date Time Status CHEST 1 VIEW (PORTABLE) Stat Exams 08/09/16 03:00 Completed Multi-Disciplinary Progress Notes: Multi-Disciplinary Progress Notes 08/09/16 08:35 (created 08/09/16 13:26) Case Management Note by Elba Joaquin DISCHARGE PLAN REVIEWED, CONTINUES TO PLAN TO RETURN TO [facility] ON DISCHARGE. NO ADDNL DISCHARGE NEEDS NOTED AT PRESENT. +FAMILY SUPPORT SYSTEM. VISIT DAILY. WILL CONTINUE TO FOLLOW AND ASSESS FOR ALL DC NEEDS. Initialized on 08/09/16 13:26 - END OF NOTE Assessment/Plan (1) GERD (gastroesophageal reflux disease) Current Visit: Yes Status: Acute Assessment & Plan: likely the source of the epigastric/chest pain that was last night and has resolved with her lack of po yesterday with the PEG tube placement continue the protonix. Code(s): K21.9 - GASTRO-ESOPHAGEAL REFLUX DISEASE WITHOUT ESOPHAGITIS (2) UTI (urinary tract infection) Current Visit: Yes Status: Acute Assessment & Plan: on Rocephin Code(s): N39.0 - URINARY TRACT INFECTION, SITE NOT SPECIFIED (3) Malnutrition Current Visit: Yes Status: Acute Assessment & Plan: start tube feedings titrate up as tolerated to goal Code(s): E46 - UNSPECIFIED PROTEIN-CALORIE MALNUTRITION (4) Lymphadenopathy Current Visit: Yes Status: Acute Assessment & Plan: abdominal will need f/u Code(s): R59.1 - GENERALIZED ENLARGED LYMPH NODES (5) Splenomegaly Current Visit: Yes Status: Acute Code(s): R16.1 - SPLENOMEGALY, NOT ELSEWHERE CLASSIFIED (6) Abdominal pain Current Visit: Yes Status: Acute Code(s): R10.9 - UNSPECIFIED ABDOMINAL PAIN (7) Vomiting Current Visit: Yes Status: Resolved Code(s): R11.10 - VOMITING, UNSPECIFIED (8) Volume overload Current Visit: Yes Status: Acute Code(s): E87.70 - FLUID OVERLOAD, UNSPECIFIED (9) Thrombocytopenia Current Visit: Yes Status: Chronic (10) History of stroke Current Visit: Yes Status: Acute Code(s): Z86.73 - PRSNL HX OF TIA (TIA), AND CEREB INFRC W/O RESID DEFICITS
[2016-08-10] MEDS: NORCO 5/325 MG PO PRN (02:37)
[2016-08-10] MEDS: Sodium Chloride 0.9% 10 ML FLUSH Syringe IV SCH ×3 (05:53→22:08)
--- NOTE | 2016-08-10 08:39 | PCM.NOTE ---
Date and Time: 08/10/16 0839 Subjective Assessment: abdominal pain improved tolerating tube feeding with 2 stools today limited urinary output. continues with the diffuse edema and pain in the legs. Objective Exam General Appearance: no apparent distress, alert Neurologic Exam: alert, oriented x 3, cooperative Skin Exam: warm, dry, ecchymosis Eye Exam: pale conjunctivae Ears, Nose, Throat Exam: moist mucous membranes Neck Exam: non-tender, supple Respiratory Exam: normal breath sounds, lungs clear, No respiratory distress Cardiovascular Exam: regular rate/rhythm, normal heart sounds Gastrointestinal/Abdomen Exam: soft, No tenderness, No mass Extremity Exam: normal inspection, normal range of motion Back Exam: normal inspection, normal range of motion, No CVA tenderness, No vertebral tenderness Pelvic Exam: deferred Rectal Exam: deferred OBJECTIVE DATA Vital Signs: Vital Signs - 24 hr Temp Pulse Resp BP Pulse Ox 08/10/16 08:15 95 08/10/16 07:12 98.4 F 90 18 115/60 95 08/10/16 04:00 97.7 F 91 H 20 107/59 93 L 08/10/16 00:00 98.0 F 88 22 110/56 92 L 08/09/16 20:14 93 L 08/09/16 20:00 97.5 F 108 H 18 125/55 94 L 08/09/16 16:00 97.5 F 107 H 20 128/61 91 L 08/09/16 12:00 97.8 F 105 H 20 122/59 94 L Pain Assessment - Last Documented Pain Intensity 8 Pain Scale Used 0-10 Pain Scale Intake and Output: Intake & Output 08/07/16 08/08/16 08/09/16 08/10/16 11:59 11:59 11:59 11:59 Intake Total 660 740 560 590 Output Total 550 900 850 825 Balance 110 -160 -290 -235 Weight 86.591 kg 84.414 kg 86.591 kg 85.593 kg Radiology Exams: Radiology Procedures Category Date Time Status CHEST 1 VIEW (PORTABLE) Stat Exams 08/09/16 03:00 Completed Assessment/Plan (1) Malnutrition Current Visit: Yes Status: Acute Assessment & Plan: tolerating tube feedings but limited output get cbc, cmp increase to tube feeding goals and hopeful to d/c to [facility] in next 1 to 2 days to continue therapy Code(s): E46 - UNSPECIFIED PROTEIN-CALORIE MALNUTRITION (2) GERD (gastroesophageal reflux disease) Current Visit: Yes Status: Acute Assessment & Plan: sympoms improved with protinx Code(s): K21.9 - GASTRO-ESOPHAGEAL REFLUX DISEASE WITHOUT ESOPHAGITIS (3) UTI (urinary tract infection) Current Visit: Yes Status: Acute Assessment & Plan: on rocephin Code(s): N39.0 - URINARY TRACT INFECTION, SITE NOT SPECIFIED (4) Lymphadenopathy Current Visit: Yes Status: Acute Code(s): R59.1 - GENERALIZED ENLARGED LYMPH NODES (5) Splenomegaly Current Visit: Yes Status: Acute Code(s): R16.1 - SPLENOMEGALY, NOT ELSEWHERE CLASSIFIED (6) Abdominal pain Current Visit: Yes Status: Resolved Code(s): R10.9 - UNSPECIFIED ABDOMINAL PAIN (7) Vomiting Current Visit: Yes Status: Resolved Code(s): R11.10 - VOMITING, UNSPECIFIED (8) Volume overload Current Visit: Yes Status: Acute Code(s): E87.70 - FLUID OVERLOAD, UNSPECIFIED (9) Thrombocytopenia Current Visit: Yes Status: Chronic (10) History of stroke Current Visit: Yes Status: Acute Assessment & Plan: restart eliquis on lower dose Code(s): Z86.73 - PRSNL HX OF TIA (TIA), AND CEREB INFRC W/O RESID DEFICITS
[2016-08-10] MEDS: Lopressor 25MG Tab PO SCH ×2 (09:26→22:07)
[2016-08-10] MEDS: ROCEPHIN 1 Gm-D5w 50 ml Bag** 1 G/50 ML IVPB IV SCH (09:26)
[2016-08-10] MEDS: Protonix 40MG Tablet PO SCH (09:26)
[2016-08-10] MEDS: SYNTHROID 100 MCG PO SCH (09:26)
[2016-08-10] MEDS: Miralax Powder 17GM PACKET PO SCH (09:27)
[2016-08-10 09:52] LABS: Mean Cell Volume 92.3 fl (78-100); Mean Corpuscular Hemoglobin 31.3 pg (26-32); Mean Platelet Volume 11.3 fl (6-9.5); Platelet Count 83 K/mm3 (150-450); Red Blood Count 4.57 M/mm3 (4.1-5.4); Red Cell Distribution Width 22.2 % (11.5-14.0); White Blood Count 7.4 K/mm3 (4.0-10.5)
[2016-08-10 10:47] LABS: ALBUMIN 1.5 g/dL (3.4-5.0); ANION GAP 10.8 MEQ/L (5-15); BILIRUBIN,TOTAL 1.3 mg/dL (0.2-1.0); Carbon Dioxide 24.7 mEq/L (21-32); Potassium 3.7 mEq/L (3.5-5.1); Total Protein 4.9 gm/dL (6.4-8.2)
[2016-08-10] MEDS: TYLENOL 325 MG PO PRN (15:49)
[2016-08-10] MEDS: ELIQUIS PO SCH (22:07)
[2016-08-10] MEDS: xanAX 0.25 MG PO SCH (22:08)
[2016-08-10] MEDS ORDERED: GI COCKTAIL 60ML (Belladonn/Phenobarb/Lidoc PO ONE (22:33)
[2016-08-10] MEDS ORDERED: MAALOX ES 30 ML UNIT DOSE ONE (22:39)
[2016-08-10] MEDS ORDERED: XYLOCAINE HCl Viscous ONE (22:39)
[2016-08-10] MEDS ORDERED: Donnatol Liquid ONE (22:48)
[2016-08-11] MEDS: xanAX 0.25 MG PO SCH ×2 (05:36→11:45)
[2016-08-11] MEDS: Sodium Chloride 0.9% 10 ML FLUSH Syringe IV SCH ×3 (05:46→22:45)
--- NOTE | 2016-08-11 09:20 | PCM.NOTE ---
Date and Time: 08/11/16914 Subjective Assessment: she has still been having the burning pain in her epigastrium and center of chest and yelling out in pain last night after initially improving this started after the PEG tube troponins were initially negative and ekg with chronic left bundle block she has been otherwise tolerating g tube feeding without vomiting noted. drinking makes the pain worse. Objective Exam General Appearance: mild distress Neurologic Exam: alert, cooperative Skin Exam: warm, dry Eye Exam: pale conjunctivae Ears, Nose, Throat Exam: moist mucous membranes Neck Exam: non-tender, supple Respiratory Exam: normal breath sounds, lungs clear Cardiovascular Exam: regular rate/rhythm, edema (pitting lower and upper extremities) Gastrointestinal/Abdomen Exam: soft, tenderness (epigastric reproduces pain G tube in place) Extremity Exam: pedal edema (pitting 4+ edema bilataral lower extremities and elbows dependent) OBJECTIVE DATA Vital Signs: Vital Signs - 24 hr Temp Pulse Resp BP Pulse Ox 08/11/16 07:09 98.8 F 64 20 122/58 96 08/11/16 04:00 97.9 F 103 H 16 105/51 95 08/11/16 00:00 98.7 F 91 H 20 100/52 93 L 08/10/16 20:38 102 H 22 93 L 08/10/16 20:00 98.6 F 106 H 22 115/56 91 L 08/10/16 15:45 99.9 F 08/10/16 12:09 98.4 F 78 22 122/58 92 L Oxygen-Last 24 hours O2 Percentage 2 Liters = 28% O2 Percentage 2 Liters = 28% O2 Percentage 2 Liters = 28% O2 Percentage 4 Liters = 36% Pain Assessment - Last Documented Pain Intensity 3 Pain Scale Used 0-10 Pain Scale Intake and Output: Intake & Output 08/08/16 08/09/16 08/10/16 08/11/16 11:59 11:59 11:59 11:59 Intake Total 740 220 918 9194 Output Total 900 850 825 550 Balance -160 -290 -235 998 Weight 84.414 kg 86.591 kg 85.593 kg 86.183 kg Lab Results: Lab Results-Last 24 Hours 08/10/16 08/10/16 Range/Units 09:40 09:40 WBC 7.4 (4.0-10.5) K/mm3 RBC 4.57 (4.1-5.4) M/mm3 Hgb 14.3 (12.0-16.0) gm/dl Hct 42.2 (35-47) % MCV 92.3 (78-100) fl MCH 31.3 (26-32) pg MCHC 33.9 (32-36) g/dl RDW 22.2 H (11.5-14.0) % Plt Count 83 L (150-450) K/mm3 MPV 11.3 H (6-9.5) fl Sodium 130 L (136-145) mEq/L Potassium 3.7 (3.5-5.1) mEq/L Chloride 98 (98-107) mEq/L Carbon Dioxide 24.7 (21-32) mEq/L Anion Gap 10.8 (5-15) MEQ/L BUN 33 H (9-20) mg/dL Creatinine 1.28 (0.55-1.30) mg/dl Estimated GFR 42 ML/MIN Glucose 182 H (70-110) MG/DL Calcium 7.2 L (8.5-10.1) mg/dL Total Bilirubin 1.30 H (0.2-1.0) mg/dL AST 107 H (15-37) U/L ALT 41 (12-78) U/L Alkaline Phosphatase 160 H (46-116) U/L Serum Total Protein 4.9 L (6.4-8.2) gm/dL Albumin 1.5 L (3.4-5.0) g/dL Slides for Path Review YES Assessment/Plan (1) Malnutrition Current Visit: Yes Status: Acute Assessment & Plan: dietary recs for tube feedings to follow at the [facility] she has minimal po intake with her minimal urine output will add back her chronic diuretic but change to bumetanide and try this if bp tolerates well may d/c on small dose of bumetanide with spironolactone. Code(s): E46 - UNSPECIFIED PROTEIN-CALORIE MALNUTRITION (2) Choledocholithiasis Current Visit: Yes Status: Acute Assessment & Plan: previous gallbladder surgery with the suspected stones now on the CT and the intermittent abdominal pains that are sever right now will try ursodiol to help dissolve if present Code(s): K80.50 - CALCULUS OF BILE DUCT W/O CHOLANGITIS OR CHOLECYST W/O OBST (3) GERD (gastroesophageal reflux disease) Current Visit: Yes Status: Acute Assessment & Plan: severe chest pains seem to be worse at night when she is laying flat head of bed was elevated will add carafate 4 times per day and add pepcid IV to the po protonix and continue to monitor the troponins were negative previously the pain is reproducible with palpation of epigastrium and her cxr was negative Code(s): K21.9 - GASTRO-ESOPHAGEAL REFLUX DISEASE WITHOUT ESOPHAGITIS (4) UTI (urinary tract infection) Current Visit: Yes Status: Acute Assessment & Plan: on Rocephin Code(s): N39.0 - URINARY TRACT INFECTION, SITE NOT SPECIFIED (5) Lymphadenopathy Current Visit: Yes Status: Acute Code(s): R59.1 - GENERALIZED ENLARGED LYMPH NODES (6) Splenomegaly Current Visit: Yes Status: Acute Code(s): R16.1 - SPLENOMEGALY, NOT ELSEWHERE CLASSIFIED (7) Abdominal pain Current Visit: Yes Status: Resolved Code(s): R10.9 - UNSPECIFIED ABDOMINAL PAIN (8) Vomiting Current Visit: Yes Status: Resolved Code(s): R11.10 - VOMITING, UNSPECIFIED (9) Volume overload Current Visit: Yes Status: Acute Code(s): E87.70 - FLUID OVERLOAD, UNSPECIFIED (10) Thrombocytopenia Current Visit: Yes Status: Chronic (11) History of stroke Current Visit: Yes Status: Acute Code(s): Z86.73 - PRSNL HX OF TIA (TIA), AND CEREB INFRC W/O RESID DEFICITS
[2016-08-11] MEDS: Pepcid 20 MG VIAL IV SCH ×2 (09:25→22:21)
[2016-08-11] MEDS: ELIQUIS PO SCH ×2 (09:25→22:20)
[2016-08-11] MEDS: ROCEPHIN 1 Gm-D5w 50 ml Bag** 1 G/50 ML IVPB IV SCH (09:25)
[2016-08-11] MEDS: Carafate SUSPENSION 1000 MG/10 ML PO ONE ×2 (09:25→22:22)
[2016-08-11] MEDS: Protonix 40MG Tablet PO SCH (09:26)
[2016-08-11] MEDS: NORCO 5/325 MG PO PRN ×3 (09:26→16:00)
[2016-08-11] MEDS: Lopressor 25MG Tab PO SCH ×2 (09:26→22:21)
[2016-08-11] MEDS: Miralax Powder 17GM PACKET PO SCH (09:26)
[2016-08-11] MEDS: SYNTHROID 100 MCG PO SCH (09:26)
[2016-08-11] MEDS ORDERED: Actigall 300MG PO SCH (10:00)
[2016-08-11] MEDS ORDERED: Lasix 40 MG PO SCH (10:00)
[2016-08-11] MEDS: BUMEX 1 MG PO SCH ×2 (10:58→16:00)
[2016-08-11] MEDS: Carafate SUSPENSION 1000 MG/10 ML PO SCH ×3 (11:45→22:22)
[2016-08-11 12:49] LABS: Mean Cell Volume 92.8 fl (78-100); Mean Platelet Volume 10.7 fl (6-9.5); Platelet Count 66 K/mm3 (150-450); Red Cell Distribution Width 21.8 % (11.5-14.0); White Blood Count 4.2 K/mm3 (4.0-10.5)
[2016-08-11 13:15] LABS: ALBUMIN 1.2 g/dL (3.4-5.0); ANION GAP 8.3 MEQ/L (5-15); BILIRUBIN,TOTAL 0.7 mg/dL (0.2-1.0); Carbon Dioxide 26.7 mEq/L (21-32); PHOSPHOROUS 2.1 mg/dL (2.6-4.7); TROPONIN 0.025 ng/ml (0.000-0.056); Total Protein 4.2 gm/dL (6.4-8.2)
[2016-08-11 16:00] LABS: BAND 6 % (0.0-2.0); Basophilic Stippling 1+; Platelet Estimate DECREASED (NORMAL); Polychromasia 1+; Total Cells Counted 100; Toxic Granulation 1+
[2016-08-12] MEDS: Sodium Chloride 0.9% 10 ML FLUSH Syringe IV SCH (06:10)
[2016-08-12] MEDS: Carafate SUSPENSION 1000 MG/10 ML PO SCH ×2 (07:49→12:29)
[2016-08-12] MEDS: TYLENOL 325 MG PO PRN (07:49)
--- NOTE | 2016-08-12 08:25 | PCM.DCORD ---
- Discharge Discharge Date: 08/12/16 Disposition: DC TO [facility] Condition: Stable Prescriptions: New Spironolactone [Aldactone] 25 mg PO DAILY #0 tablet Bumetanide 1 mg [Bumex 1 mg] 1 mg PO BID DIURETIC #60 tablet Cephalexin Mh 500 mg [Keflex 500 mg] 500 mg PO BID #14 capsule Continue Polyethylene Glycol 3350 [Miralax Powder] 17 gm PO DAILY Esomeprazole Magnesium [Nexium] 20 mg PO DAILY Levothyroxine Sodium 75 Mcg [Synthroid 75 Mcg] 75 mcg PO 0600 Hydrocodone/Acetaminophen [[place] 5-325 Tablet] 1 each PO Q4HPRN PRN PRN Reason: Pain Acetaminophen 325 mg [Tylenol 325 mg] 650 mg PO Q4HPRN PRN PRN Reason: Pain And/Or Fever Bisacodyl 10 mg [Dulcolax 10 MG SUPP] 10 mg RC DAILY PRN PRN PRN Reason: Constipation Metoprolol Tartrate 25 mg [Lopressor 25MG Tab] 25 mg PO BID #60 tab Saliva Stimulant Agents Comb.3 [Biotene Moisturizing Mouth] 1 spray PO UD Ondansetron [Zofran Odt] 4 mg PO 0830,2030 Eszopiclone 1 mg PO HS PRN PRN PRN Reason: Insomnia Changed Apixaban [Eliquis] 2.5 mg PO BID #0 tablet Discontinued Furosemide [Lasix] 40 mg PO 0600,1200 Aspirin 81 mg PO UD Additional Instructions: Consult mold changer additional before discharge for final tube feeding recommendations. Continue tube feeds at longterm Check CBC with diff and cmp and phosphorus on keep head of bed elevated at longterm over 30 degrees. Follow up with: JACKSON LEVI [Primary Care Provider] - 1 Week Forms: Patient Portal Information
[2016-08-12] MEDS: SYNTHROID 100 MCG PO SCH (09:46)
[2016-08-12] MEDS: ROCEPHIN 1 Gm-D5w 50 ml Bag** 1 G/50 ML IVPB IV SCH (09:46)
[2016-08-12] MEDS: BUMEX 1 MG PO SCH (09:46)
[2016-08-12] MEDS: Miralax Powder 17GM PACKET PO SCH (09:46)
[2016-08-12] MEDS: Pepcid 20 MG VIAL IV SCH (09:46)
[2016-08-12] MEDS: Protonix 40MG Tablet PO SCH (09:46)
[2016-08-12] MEDS: Lopressor 25MG Tab PO SCH (09:46)
[2016-08-12] MEDS: ELIQUIS PO SCH (09:46)
[2016-08-12] MEDS: xanAX 0.25 MG PO SCH (09:46)
[2016-08-12 13:25] VITALS: BP 110/56; PULSE 87; O2SAT 91
--- NOTE | 2016-08-12 21:26 | PCM.DS ---
Discharge Summary Date of Admission: 08/07/16 17:51 Date of Discharge: 08/12/16 Admitting Physician: JACKSON LEVI Consults: Consults on Case 08/07/16 08:43 Consult Physician ROUTINE 08/07/16 09:01 Consult Surgery ROUTINE 08/08/16 18:33 Nutritional Consult 08/12/16 08:45 Nutritional Consult ROUTINE Primary Care Provider: JACKSON LEVI Allergies Allergies No Known Drug Allergies Allergy (Verified 08/06/16 13:27) Hospital Summary - Hospital Course Hospital Course: Angelique was living at home alone 1 month ago when she was having progressively increased difficulty with swallowing and falling and caring for herself. She was hospitalized at [facility] for a stroke and sent to [facility] for rehab and subsequently developed septic shock and was treated in [place] with broad spectrum antibiotics for pneumonia followed by 2 weeks of antibiotic total coarse. SHe developed fluid overload but continued to be unable to swallow and worsening waxing and waning mental status. SHe was unresponsive to po diuretics and was vomiting and not able to eat and was admitted for evaluation where she was found to have very low protein levels and only able to drink fluids. Dr. Lee was consulted and PEG tube placed she did have a UTI and was placed on Rocephin and she was also found to have significant lymphadenopathy retroperitoneal and inguinal as well as splenomegaly and thrombocytopenia. With her recent severe sepsis and her malnourished status evaluation with biopsy was felt to be too risky for increased risk of infection and delayed healing risk too high and possibility of resoloving infectious source with the previous sepsis. We elected to advance tube feedings and will re-evaluate in the outpatient setting. She tolerated the tube feedings well but if her head of the bed is not elevated she has severe burning pain in her epigastric area this was ruled out for cardiac etiology with negative serial troponins. She had unremarkable chest x-ray.She did remain very anxious and also had increased confusion with use of pain medications. She was d/c back to [facility] to continue tube feedings and work on therapy. Her edema is secondary to lack of sufficient protein will continue gentle diuretics with bumex and aldactone and monitor bp and renal and K levels as outpatient follow the plt levels and f/u the lymphadenopathy. WE discussed with the patient and her grand daughter who was present every day the possibility she is suffering from a terminal illness and they are in understanding of this currently. - Vitals & Intake/Output Vital Signs: Vital Signs Temperature 97.3 F 08/12/16 12:05 Pulse Rate 87 08/12/16 12:05 Respiratory Rate 22 08/12/16 12:05 Blood Pressure 110/56 08/12/16 12:05 O2 Sat by Pulse Oximetry 91 L 08/12/16 12:05 Oxygen-Last Documented O2 Percentage 2 Liters = 28% Intake & Output: Intake & Output 08/10/16 08/11/16 08/12/16 08/13/16 11:59 11:59 11:59 11:59 Intake Total 590 1548 1456 120 Output Total 825 550 825 250 Balance -235 998 631 -130 Weight 85.593 kg 86.183 kg 87.679 kg - Lab Result Diagrams: 08/11/16 12:44 08/11/16 12:44 Micro Results-Entire Visit: Microbiology 08/06/16 16:25 - Final Urine, Indwelling Catheter Escherichia Coli - Procedures and Test Procedures and Tests throughout Hospitalization: Therapy Orders & Screens 08/06/16 20:51 Oxygen NASAL CANNULA 2 lpm Comment: TO KEEP SPO2 >92% Diagnosis: volume overload, vomiting 08/09/16 01:57 EKG STAT Comment: Diagnosis: vomiting, malnutrition, Discharge Exam General Appearance: no apparent distress, No alert Neurologic Exam: No motor deficits Skin Exam: normal color, warm, dry, ecchymosis, other (pressure ulcers on heals) Eye Exam: PERRL, EOMI, eyes nml inspection, No scleral icterus Ears, Nose, Throat Exam: normal ENT inspection, pharynx normal, moist mucous membranes Neck Exam: normal inspection, non-tender, supple, full range of motion Respiratory Exam: normal breath sounds, lungs clear, No respiratory distress Cardiovascular Exam: regular rate/rhythm, normal heart sounds Gastrointestinal/Abdomen Exam: soft, No tenderness, No mass Extremity Exam: normal inspection, normal range of motion, pedal edema (4+ pitting bilateral lower extremities and dependent areas of elbows) Back Exam: normal inspection, normal range of motion, No CVA tenderness, No vertebral tenderness Pelvic Exam: deferred Rectal Exam: deferred Final Diagnosis/Problem List - Final Discharge Diagnosis/Problem (1) Malnutrition Status: Acute (2) Choledocholithiasis Status: Acute (3) GERD (gastroesophageal reflux disease) Status: Acute (4) UTI (urinary tract infection) Status: Acute (5) Lymphadenopathy Status: Acute (6) Splenomegaly Status: Acute (7) Abdominal pain Status: Resolved (8) Vomiting Status: Resolved (9) Volume overload Status: Acute (10) Thrombocytopenia Status: Chronic (11) History of stroke Status: Acute (12) Pressure ulcer Status: Chronic - Discharge Disposition: DC TO [facility] Condition: Stable Prescriptions: New Spironolactone [Aldactone] 25 mg PO DAILY #0 tablet Bumetanide 1 mg [Bumex 1 mg] 1 mg PO BID DIURETIC #60 tablet Cephalexin Mh 500 mg [Keflex 500 mg] 500 mg PO BID #14 capsule Continue Polyethylene Glycol 3350 [Miralax Powder] 17 gm PO DAILY Esomeprazole Magnesium [Nexium] 20 mg PO DAILY Levothyroxine Sodium 75 Mcg [Synthroid 75 Mcg] 75 mcg PO 0600 Hydrocodone/Acetaminophen [[place] 5-325 Tablet] 1 each PO Q4HPRN PRN PRN Reason: Pain Acetaminophen 325 mg [Tylenol 325 mg] 650 mg PO Q4HPRN PRN PRN Reason: Pain And/Or Fever Bisacodyl 10 mg [Dulcolax 10 MG SUPP] 10 mg RC DAILY PRN PRN PRN Reason: Constipation Metoprolol Tartrate 25 mg [Lopressor 25MG Tab] 25 mg PO BID #60 tab Saliva Stimulant Agents Comb.3 [Biotene Moisturizing Mouth] 1 spray PO UD Ondansetron [Zofran Odt] 4 mg PO 0830,2030 Eszopiclone 1 mg PO HS PRN PRN PRN Reason: Insomnia Changed Apixaban [Eliquis] 2.5 mg PO BID #0 tablet Discontinued Furosemide [Lasix] 40 mg PO 0600,1200 Aspirin 81 mg PO UD Additional Instructions: Continue tube feeds at intermediate, Jevity 1.2 sushila at 55 cc/hr Flush PEG tube with 100cc H2O TID Check CBC with diff and cmp and phosphorus on , August 15 Keep head of bed elevated at intermediate over 30 degrees. Continue all other intermediate orders Follow up with: JACKSON LEVI [Primary Care Provider] - 1 Week (DR. LEVI TO FOLLOW AT [facility]) Forms: Ambulance Transport Record, Patient Portal Information, Transfer Record Half-Way
== END 2016-08-12 13:10 | DRG 641 ==
LOC: MED SURG 13:00 → UNDOADMOB 13:00 → MED SURG 13:40 → OBSVTOIN 17:51 → INTOOBSV 17:51 → UNDOADMOB 08-07 17:51 → OBSVTOIN 08-07 17:51 → INTOOBSV 08-07 17:51 → MED SURG 08-07 17:51 → UNDODISIN 08-12 13:10
PROVIDERS: ADMIT Family Medicine; ATTEND Family Medicine
PROC: 0DH63UZ Insertion of Feeding Device into Stomach, Percutaneous Approach (ICD-10-PCS; principal; 2016-08-08)
DX: E46 Unspecified protein-calorie malnutrition (principal); N39.0 Urinary tract infection, site not specified; K80.50 Calculus of bile duct without cholangitis or cholecystitis without obstruction; K21.9 Gastro-esophageal reflux disease without esophagitis; R59.1 Generalized enlarged lymph nodes; R16.1 Splenomegaly, not elsewhere classified; R10.9 Unspecified abdominal pain; R11.10 Vomiting, unspecified; E87.70 Fluid overload, unspecified; D69.6 Thrombocytopenia, unspecified; Z86.73 Personal history of transient ischemic attack (TIA), and cerebral infarction without residual deficits; L89.619 Pressure ulcer of right heel, unspecified stage; L89.329 Pressure ulcer of left buttock, unspecified stage; L89.319 Pressure ulcer of right buttock, unspecified stage; I10 Essential (primary) hypertension; E03.9 Hypothyroidism, unspecified
CPT/HCPCS: 36415; 71010; 74176; 80048; 80053; 81000; 83690; 83880; 84100; 84134; 84443; 84484; 85025; 85027; 87077; 87086; 87186; 93005; 94760; G0378; J0696; J1940; J2175; J2250; A9270-GY